=== PATIENT | male | born 1950 | race Caucasian/White ===

== ENCOUNTER 2017-01-14 07:48 | Outpatient (CLI) | payer MEDICARE ==
[~2017-01-14] VITALS: Ht 172.7 cm; Wt 62.7 kg
--- NOTE | ~2017-01-14 | PRO ---
PATIENT:KEON NAGEL MEDICAL RECORD: [id number] : 50 LOCATION:D.CAT ADMISSION DATE: 01/14/17 PROCEDURE PERFORMED BY: JEFFERSON FERREIRA MD PROCEDURE DATE: 01/14/17 PROCEDURES: 1. Percutaneous transluminal coronary angioplasty stent left circumflex. 2. Left heart catheterization. 3. Selective coronary angiography. 4. Left ventriculogram. INDICATION: 1. Angina. 2. Coronary artery disease. PROCEDURE IN DETAIL: After informed consent was obtained and after detailed explanation of risks, benefits, as well as alternative therapies, the patient elected to proceed with angiogram and angioplasty. The right femoral area was prepped and draped in a normal sterile fashion. The right femoral artery was cannulated via modified Seldinger technique with placement of 6-Yoruba sheath. All catheters exchanged through this sheath. FINDINGS: The left ventriculogram was performed in standard 30 degree VALENZUELA view, reveals good cardiac wall motion throughout all segments. Overall ejection fraction estimated at 60%. SELECTIVE CORONARY ANGIOGRAPHY: 1. Left main is with no significant angiographic disease. 2. Left anterior descending has previously placed stents. These are widely patent with no significant restenosis. 3. The left circumflex has previously placed stents. There is 90-95% in-stent restenosis in the mid vessel. 4. The right coronary artery has mild irregularities but no flow-limiting stenosis. PTCA STENT OF THE LEFT CIRCUMFLEX: The lesion was in a 2.25 vessel, 15 millimeters in length, 90% stenosed with CATRACHITA 3 flow before and after the intervention. It was addressed with a 2.25 X 18 millimeter BioFreedom stent taken to 17 atmospheres. The result was 0% residual stenosis. OVERALL IMPRESSION: Successful percutaneous transluminal coronary angioplasty stent of the left circumflex going from 90% initial stenosis to 0% residual stenosis. JEFFERSON FERREIRA MD CC: [id number] DICTATION DATE: 01/14/172156 BUSINESS MACHINES TEACHER: DEONDRE 01/14/172156 [facility] CLI 01/14/17 [place] [id number]
--- NOTE | ~2017-01-14 | HEMODYNAMI ---
PATIENT:KEON NAGEL MEDICAL RECORD: [id number] : 50 LOCATION:DVictorinoCAT ADMISSION DATE: 01/14/17 Generatedon:01/14/201712:27 Patient name: KEON NAGEL Patient #: [id number] SSN: : 1950 Date of study: 01/14/2017 Page: Of Hemodynamic Procedure Report Patient Data Patient Demographics Procedure consent was obtained First Name: KEON Gender: Male Last Name: SHONA : 1950 [facility] Initial: E Age: 66 year(s) Patient #: [id number] Race: Additional ID: [id number] Contact details Address: [address] [place] [address] State: [place] City: [facility] Zip code: [address] Past Medical History Allergies Allergen Reaction Date Comments Reported Iodine 12/12/2015 Iodine 01/14/2017 Admission Admission Data Admission Date: 01/14/2017 Admission Time: 7:48 Admit Source: Other Height (in.): 68 BSA: 1.75 (m2) Height (cm.): 172.72 BMI: 20.98 (kg/m2) Weight (lbs.): 138 Weight (kg.): 62.6 Lab Results Lab Result Date: 01/14/2017 Lab Result Time: 8:45 Biochemistry Name Units Result Min Max BUN mg/dl 15 --(--*-)-- 7 18 Creatinine mg/dl 1 --(--*-)-- 0.6 1.3 CBC Name Units Result Min Max Hematocrit % 41.3 -*(----)-- 42 54 Hemoglobin g/dl 14.6 --(-*--)-- 13.5 17.5 Procedure Procedure Types Cath Procedure Diagnostic Procedure [facility] w/Coronaries PCI Procedure Coronary Stent Initial Miscellaneous Procedures Moderate Sedation up to 30 minutes Procedure Description Procedure Date Procedure Date: 01/14/2017 Procedure Start Time: 12:05 Procedure End Time: 12:26 Procedure Staff Name Function Bernice Kapoor RT Scrub Farrukh Brewster RT Monitor Wale Hartley RN Custodial Manager Abhinav Escaalnte MD Performing Physician Tosha Villanueva RN Nurse Ronny Rehman RT Monitor Procedure Data Cath Procedure Fluoroscopy Diagnostic fluoroscopy Total fluoroscopy Time: 4.7 time: 4.7 min min Diagnostic fluoroscopy Total fluoroscopy dose: 351 dose: 351 mGy mGy Contrast Material Contrast Material Type Amount (ml) Isovue 300 74 Entry Location Entry Primary Successful Side Size Upsize Upsize Entry Closure Succes sful Closure Location (Fr) 1 (Fr) 2 (Fr) Remarks Device Remarks Femoral Right 5 Fr 6 Fr Exoseal artery Short Estimated blood loss: 10 ml Diagnostic catheters Device Type Used For End Catheter Placement Cordis 5Fr Pigtail Procedure Catheter (MP) Cordis 5Fr JL 4.0 Procedure Catheter (MP) Cordis 5Fr 3DRC Catheter Procedure (MP) Procedure Complications No complications Procedure Medications Medication Administration Route Dosage Oxygen NC 3 l/min Heparin Flush Bag added to field 2 bags (1000units/500ml NS) Lidocaine 2% added to field 20 0.9% NaCl I.V. 100 ml/hr Versed I.V. 1 mg Fentanyl I.V. 50 mcg Heparin Bolus I.V. 4000 units Integrilin (Bolus I.V. 5.6 ml 2mg/ml) Versed I.V. 1 mg Fentanyl I.V. 50 mcg Fentanyl I.V. 50 mcg Versed I.V. 1 mg Versed I.V. 1 mg Fentanyl I.V. 50 mcg Integrilin (Bolus 4.4 ml 2mg/ml) Hemodynamics Rest BSA: 1.75 (m2) HGB: 14.6 (g/dl) O2 Consumption: Estimated: 213.41 (ml/min) O2 Co nsumption indexed: Estimated:121.95 (ml/min/m) Heart Rate: 85 (bpm) Snapshots Pre Cath Intra NCS Post Cath Vital Signs Time Heart Resp SPO2 etCO2 RU5vdsl NIBP (mmHg) Rhythm Pain Sedation Rate (ipm) (%) (mmHg) (mmHg) Status Level (bpm) 11:47:24 84 15 100 0 0 140/96(121) NSR 0 (11) 10(A) , No pain 11:51:42 89 18 100 0 0 134/87(108) NSR 0 (11) 10(A) , No pain 11:55:56 90 17 100 0 0 135/88(109) NSR 0 (11) 10(A) , No pain 12:00:08 88 20 100 0 0 128/85(107) NSR 0 (11) 10(A) , No pain 12:04:22 85 19 99 0 0 117/79(96) NSR 0 (11) 10(A) , No pain 12:08:30 89 16 99 0 0 117/81(99) NSR 0 (11) 9(A) , No pain 12:12:38 95 16 98 0 0 118/78(97) NSR 0 (11) 9(A) , No pain 12:16:48 88 17 98 0 0 114/74(89) NSR 0 (11) 9(A) , No pain 12:20:54 93 16 98 0 0 114/87(97) NSR 0 (11) 10(A) , No pain 12:24:59 89 8 98 0 0 118/83(93) NSR 0 (11) 10(A) , No pain Medications Time Medication Route Dose Verified Delivered Reason Notes Ef fectiveness by by 11:47:24 Oxygen NC 3 Tosha Tosha used for l/min Kay Kay ornamental plasterer helper RN 11:47:33 Heparin Flush added 2 Tosha Tosha used for Bag to bags Kay Kay procedure (1000units/500ml field RN RN NS) 11:47:41 Lidocaine 2% added 20ml Tosha Tosha used for to vial Kay Kay procedure field RN RN 11:47:51 0.9% NaCl I.V. 100 Tosha Tosha used for ml/hr Kay Kay ornamental plasterer helper RN 12:04:08 Versed I.V. 1 mg Tosha Tosha for Kay Kay sedation RN RN 12:04:14 Fentanyl I.V. 50 Tosha Tosha for mcg Kay Kay sedation RN RN 12:07:16 Heparin Bolus I.V. 4000 Abhinav Tosha Per verified units Ava HOGAN Kay physician with dr. CHRISTIANO escalante 12:07:45 Integrilin I.V. 5.6 Abhinav Tosha Per verified (Bolus 2mg/ml) ml Ava HOGAN Kay physician with dr. CHRISTIANO escalante 12:08:17 Versed I.V. 1 mg Tosha Tosha for Kay Kay sedation RN RN 12:08:28 Fentanyl I.V. 50 Tosha Tosha for mcg Kay Kay sedation RN RN 12:12:20 Versed I.V. 1 mg Tosha Tosha for Kay Kay sedation RN RN 12:12:37 Fentanyl I.V. 50 Tosha Tosha for mcg Kay Kay sedation RN RN 12:16:30 Versed I.V. 1 mg Tosha Tosha for Kay Kay sedation RN RN 12:16:43 Fentanyl I.V. 50 Tosha Tosha for mcg Kay Kay sedation RN RN 12:21:25 Integrilin wasted 4.4 Tosha Tosha Per (Bolus 2mg/ml) ml Kay Kay physician RN generator repairer Log Time Note 11:35:31 Wale Hartley RN sent for patient. Start room use. 11:41:37 Time tracking: Regular hours 11:41:40 Plan of Care:Hemodynamics will remain stable., Cardiac rhythm will remain stable., Comfort level will be maintained., Respiratory function will remain adequate., Patient/ family verbilizes understanding of procedure., Procedure tolerated without complication., Recovers from procedure without complications.. 11:41:45 Patient received from Pre/Post Procedure Room to CCL 1 Alert and oriented. Tansferred to table in Supine position. 11:41:46 Correct patient and procedure confirmed by team. 11:41:46 Warm blankets applied, and ernesto hugger turned on for patient comfort. 11:41:47 Signed procedure consent form obtained from patient. 11:41:48 ECG and BP/O2 sat monitors applied to patient. 11:41:49 Full Disclosure recording started 11:46:14 Vital chart was started 11:47:24 Oxygen 3 l/min NC was administered by Tosha Villanueva RN; used for procedure; 11:47:33 Heparin Flush Bag (1000units/500ml NS) 2 bags added to field was administered by Tosha Villanueva RN; used for procedure; 11:47:41 Lidocaine 2% 20ml vial added to field was administered by Tosha Villanueva RN; used for procedure; 11:47:51 0.9% NaCl 100 ml/hr I.V. was administered by Tosha Villanueva RN; used for procedure; 11:48:44 Baseline sample Acquired. 11:48:50 Rhythm: sinus rhythm 11:49:16 H&P Date Dictated: 01/13/2017 Within 30 days and on chart., H&P Addendum completed by physician on day of procedure. (MUST COMPLETE FOR ALL OUTPATIENTS). 11:49:18 Pre-op teaching completed and patient verbalized understanding. 11:49:18 Pre-procedure instructions explained to patient. 11:49:20 Family in waiting room. 11:49:24 Patient NPO since Midnight. 11:49:36 Patient allergic to Iodine 11:49:40 Is the patient allergic to Iodine/contrast media? Yes. 11:49:42 Was the patient premedicated? Yes 11:49:47 Is patient on blood thinner?No 11:49:52 Patient diabetic? No. 11:49:59 ----Pre-sedation anethsthesia assessment.---- 11:50:02 Previous problem with sedation/anesthesia? No ? 11:50:04 Snore? Yes 11:50:07 Sleep apnea? No 11:50:08 Deviated septum? No 11:50:10 Opens mouth fully? Yes 11:50:12 Sticks out tongue? Yes 11:50:19 Airway obstruction? Yes COPD 11:50:25 Dentures? Yes OUT 11:50:30 Pre procedure: right dorsailis pedis pulse 1+ Palpable, but thready & weak; easily obliterated 11:50:35 Patient pain scale 0/10 ?. 11:50:49 IV patent on arrival in left antecubital with 0.9% NaCl at [facility]. 11:55:15 Lab Result : Hemoglobin 14.6 g/dl 11:55:15 Lab Result : Hematocrit 41.3 % 11:55:15 Lab Result : BUN 15 mg/dl 11:55:15 Lab Result : Creatinine 1 mg/dl 11:55:17 Zero performed for pressure channel P1 11:57:35 Zero performed for pressure channel P1 11:58:08 Lab results completed and on chart. 11:58:11 Right groin area was prepped with chlora-prep and draped in sterile fashion 11:58:12 Sharps counted by scrub and verified by R.N. 11:58:12 Alarms reviewed by R. N. 11:58:15 Use device set Femoral Dx 11:58:16 Tegaderm 4 x 4 opened to sterile field. 11:58:17 Acist Manifold opened to sterile field. 11:58:18 Acist Hand Control opened to sterile field. 11:58:19 Bag Decanter opened to sterile field. 11:58:19 Acist Syringe opened to sterile field. 11:58:20 Terumo 5Fr [place] Sheath opened to sterile field. 11:58:20 Medline Cath Pack opened to sterile field. 11:58:21 St Stephan 260cm J .035 wire opened to sterile field. 11:58:22 Diagnostic Infinity 5Fr Multipack catheter opened to sterile field. 12:03:44 Physician arrived 12:03:45 Final Timeout: patient, procedure, and site verified with staff and physician. All members of the team are in agreement. 12:03:45 --------ALL STOP TIME OUT------ 12:03:46 Right groin site verified by team. 12:03:49 Physical assessment completed. ASA score P 2 - A patient with mild systemic disease as per Abhinav Escalante MD. 12:03:52 Sedation plan: IV Moderate Sedation Versed, Fentanyl 12:04:08 Versed 1 mg I.V. was administered by Tosha Villanueva RN; for sedation; 12:04:14 Fentanyl 50 mcg I.V. was administered by Tosha Villanueva RN; for sedation; 12:05:44 Procedure started. 12:05:51 Local anesthetic to right femoral artery with Lidocaine 2% by Abhinav Escalante MD.INITIAL ACCESS ONLY 12:06:08 A 5 Fr sheath was inserted into the Right Femoral artery 12:06:28 A Cordis 5Fr Pigtail Catheter (MP) was advanced over the wire and used for Procedure. 12:06:35 LV gram done using VALENZUELA 12:06:38 Injector settings: Ml/sec: 10, Volume: 20, 12:06:44 EF : 60 % 12:07:01 A Cordis 5Fr JL 4.0 Catheter (MP) was advanced over the wire and used for Procedure. 12:07:16 Heparin Bolus 4000 units I.V. was administered by Tosha Villanueva RN; Per physician; verified with dr. escalante 12:07:29 LCA angiography performed. 12:07:45 Integrilin (Bolus 2mg/ml) 5.6 ml I.V. was administered by Tosha Villanueva RN; Per physician; verified with dr. escalante 12:07:51 Gill Whisper J 300cm 0.014 guide wire opened to sterile field. 12:07:51 Terumo 6Fr [place] Sheath opened to sterile field. 12:07:52 Merit BasixCompak Inflation Kit opened to sterile field. 12:08:08 Catheter removed. 12:08:17 Versed 1 mg I.V. was administered by Tosha Villanueva RN; for sedation; 12:08:28 Fentanyl 50 mcg I.V. was administered by Tosha Villanueva RN; for sedation; 12:09:03 Sheath upsized to a 6 Fr Short. 12:09:11 A Cordis 5Fr 3DRC Catheter () was advanced over the wire and used for Procedure. 12:09:22 RCA angiography performed. 12:10:06 Catheter removed. 12:11:07 Cordis 6FR XBLAD 3.5 guide catheter opened to sterile field. 12:11:21 6 Fr XBLAD 3.5 guide catheter was inserted over the wire 12:12:20 Versed 1 mg I.V. was administered by Tosha Villanueva RN; for sedation; 12:12:37 Fentanyl 50 mcg I.V. was administered by Tosha Villanueva RN; for sedation; 12:12:56 Guide Catheter removed. unable to cannulate vessel. 12:13:05 Medtronic Launcher 6Fr EBU 3.0 guide catheter opened to sterile field. 12:13:12 6 Fr EBU 3 guide catheter was inserted over the wire 12:13:45 WHISPER wire advanced. 12:13:50 Wire advanced across lesion. 12:15:23 Inflation number: 1 A [place] Moven Hardin 2.0 X 20 balloon was prepped and advanced across the Mid CX, then inflated to 17 TAHMINA for 0:10 (min:sec). 12:15:30 Balloon removed over the wire. 12:16:30 Versed 1 mg I.V. was administered by Tosha Villanueva RN; for sedation; 12:16:43 Fentanyl 50 mcg I.V. was administered by Tosha Villanueva RN; for sedation; 12:17:21 Inflation Number: 2 A Biofreedom 2.25 x 18 Stent (No Cost Implant) was prepped and advanced across the Mid CX. The stent was deployed at 17 TAHMINA for 0:10 (min:sec). 12:18:02 Stent catheter was removed intact over wire. 12:18:50 Guide catheter removed. 12:18:50 Wire removed. 12:18:56 Cordis 6Fr Exoseal opened to sterile field. 12:19:05 Sheath removed intact; hemostasis achieved with Exoseal to the Right Femoral artery. 12:19:07 Procedure ended.(Physican Out) 12:19:46 Patient Height : 68 cm 12:19:51 Patient Weight : 138 kg 12:19:51 Admit Source: Other 12:21: Fluoroscopy time 04.70 minutes. 12:21:04 Fluoroscopy dose: 351 mGy 12:21:04 Flurop Dose total: 351 12:21:09 Contrast amount:Isovue 300 74ml. 12:21:10 Sharps counted by scrub and verified by R.N. 12:21:25 Integrilin (Bolus 2mg/ml) 4.4 ml wasted was administered by Tosha Villanueva RN; Per physician; 12:22:31 Insertion/operative site no bleeding no hematoma. 12:22:34 Post-op/insertion site Right Femoral artery dressed using a 4 x 4 and Tegaderm. 12:22:38 Post right femoral artery:stable, soft, clean and dry 12:22:39 Post Procedure Pulses reassessed and unchanged 12:22:42 Post-procedure physical assessment completed. ASA score P 2 - A patient with mild systemic disease as per Abhinav Escalante MD. 12:22:44 Post procedure rhythm: unchanged. 12::46 Estimated blood loss: 10 ml 12:22:51 Patient needs reinforcement of post procedure teaching. 12:22:51 Post procedure instruction explained to patient.Patient verbalizes understanding. 12:23:06 Procedure type changed to Cath procedure, Diagnostic procedure, LHC, LHC w/Coronaries, PCI procedure, Coronary Stent Initial, Miscellaneous Procedures, Moderate Sedation up to 30 minutes 12:25:55 Procedure and supply charges have been captured, reviewed, submitted and are correct. 12:25:55 Procedure and supply charges have been captured, reviewed, submitted and are correct. 12:26:00 Procedure Complication : No complications 12:26:02 Vital chart was stopped 12:26:05 Report given to Pre/Post Procedure Room. 12:26:07 Patient transfered to Pre/Post Procedure Room with Stretcher. 12:26:14 Full Disclosure recording stopped 12:26:14 Procedure ended. 12:26:18 End room use (Document Last) Intervention Summary Intervention Notes Time ActionType Lesion and Equipment Action# Pressure Duration Attributes Used 12:15:23 Inflate Mid CX [place] Sci 1 17 00:10 balloon Hardin 2.0 X 20 balloon 12:17:21 Place stent Mid CX Biofreedom 2 17 00:10 2.25 x 18 Stent (No Cost Implant) Device Usage Item Name Manufacture Quantity Catalog Number Hospital Part Current Mini mal Lot# / Charge Number Stock Stock Serial# Code Tegaderm 4 3M 1 [id number] 186153 602263 5 x 4 Acist Acist 1 31192 374627 465725 208265 5 Manifold Medical Systems [employer] Acist Hand Acist 1 43331 974275 931533 272558 5 Control Medical Systems [employer] Acist Acist 1 79595 290064 230295 444094 20 Syringe Medical Systems [employer] Bag Microtek 1 2002S 673097 02557 861360 5 Aspyra [employer] Inc[employer] Medline Cardinal 1 [id number] 626303 17933 211493 5 Cath Pack Health Terumo 5Fr Terumo 1 [id number] 772744 582631 825296 [address] Stephan 1 849787 347371 957222 664188 30 260cm J .035 wire Diagnostic Cardinal 1 [id number] 755373 88378 746545 30 Infinity Health 5Fr Multipack catheter Cordis 5Fr Cardinal 1 094038 5 Pigtail Health Catheter (MP) Cordis 5Fr Cardinal 1 136149 5 JL 4.0 Health Catheter (MP) Terumo 6Fr Terumo 1 [id number] 009594 036093 066136 40 [place] Sheath Gill Gill 1 [id number] 898935 217779 925790 5 Whisper J Vascular 300cm 0.014 guide wire Merit Merit 1 [id number] 307829 807605 458842 15 enVerid Medical Inflation Kit Cordis 5Fr Cardinal 1 042360 5 [facility] Health Catheter (MP) Cordis 6FR Cardinal 1 [id number] 426937 906475 158907 10 XBLAD 3.5 Health guide catheter Medtronic Medtronic 1 [id number] 638054 07870 807871 0 Launcher 6Fr EBU 3.0 guide catheter Kingsland Sci Kingsland 1 [id number] 447120 262206 079354 1 [id number] Knock Knock 2.0 X 20 balloon Biofreedom Biosensors 1 [id number] 421534 006559 5 [id number] 2.25 x 18 Europe SA Stent (No Cost Implant) Cordis 6Fr Cardinal 1 EX600 944809 590584 212941 10 [facility] [employer] Now Signature Audit [place] Stage Time Signature Unsigned Intra-Procedure 01/14/2017 Ronny Rehman 12:27:51 PM RT(R) Signatures Monitor : Farrukh Brewster RT Signature : Date : Time : Monitor : Ronny Rehman RT Signature : Date : Time : [place] [address] [place] [address]
[~2017-01-14 07:48] MED LIST: BAYER CHEWABLE81 MG PO; BUTALB-APAP-CA1 EACH; BUTALB-APAP-CA1 EACH PO; CELEXA20 MG PO; CHANTIX 1 MG TAB1 MG PO; COMBIVENT RESPIM4 GM INH; EPIPEN0.3 MG/0.3 IM; LIPITOR80 MG PO; PERCOCET 10/3251 TA1 PO; PLAVIX75 MG PO; PREDNISONE20 MG PO; PROAIR HFA8.5 GM INH; PROZAC20 MG PO; ROBAXIN500 MG PO; XANAX1 MG PO
[2017-01-14 08:53] VITALS: BP 108/73; Ht 172.7 cm; Wt 62.7 kg
[2017-01-14 08:55] LABS: BASOPHILS 0 % (0-2); EOSINOPHILS 0 % (0-7); HEMATOCRIT 41.3 % (42.0-54.0); HEMOGLOBIN 14.6 g/dL (13.5-17.5); IMMATURE GRANULOCYTES 0.2 % (0-5); LYMPHOCYTES 7.2 % (15-50); MCHC 35.4 g/dL (31.0-37.0); MCV 87.7 fL (80.0-100.0); NEUTROPHILS 91.6 % (40-80); PLATELET COUNT 158 10x3/uL (130-400); RBC 4.71 10x6/uL (4.20-6.10); RDW 13.6 % (11.5-14.5); WBC 6.1 10x3/uL (4.8-10.8)
[2017-01-14 09:08] LABS: CALC OSMOLALITY 283 mosm/kg (275-300); CALCIUM 9.1 mg/dL (8.5-10.1); CARBON DIOXIDE 25.2 mmol/L (21.0-32.0); CHLORIDE - SERUM 107 mmol/L (98-107); GLUCOSE 131 mg/dL (74-106); POTASSIUM - SERUM 5.3 mmol/L (3.5-5.1); SODIUM 141 mmol/L (136-145); UREA NITROGEN 15 mg/dL (7-18); eGFR NON AFRICAN AMERICAN 79 mL/min (90-120)
[2017-01-14 09:21] LABS: CKMB 2.3 U/L (0.0-3.6); CREATINE KINASE 97 UL (21-232)
[2017-01-14 09:22] LABS: TROPONIN-I < 0.017 ng/mL (0.000-0.060)
[2017-01-14] MEDS ORDERED: PLAVIX75 MG PO (12:51)
--- NOTE | 2017-01-14 13:00 | NUR ---
RIGHT GROIN CDI, NO HEMATOMA OR BLEEDING NOTED, DAUGHTER AT SIDE. DENIES CHEST PAIN OR NEEDS
--- NOTE | 2017-01-14 13:30 | NUR ---
NO CHANGE IN RIGHT GROIN, DAUGHTER AT SIDE.
--- NOTE | 2017-01-14 16:10 | NUR ---
IV D'C WITH CATH TIP INTACT, WRITTEN AND VERBAL D'C INSTRUCTIONS GIVEN TO PT AND DAUGHTER. DENIES CHEST PAIN. LAB AND EKG DONE.
== END 2017-01-14 16:30 | disposition home or self-care (01) ==
LOC: D.CATH 07:48
PROVIDERS: Internal Medicine Interventional Cardiology
DX: I25.119 Atherosclerotic heart disease of native coronary artery with unspecified angina pectoris (principal); E78.5 Hyperlipidemia, unspecified; Z01.810 Encounter for preprocedural cardiovascular examination; Z01.812 Encounter for preprocedural laboratory examination; Z00.6 Encounter for examination for normal comparison and control in clinical research program; F17.200 Nicotine dependence, unspecified, uncomplicated
CPT/HCPCS: 93458; C9600

== ENCOUNTER → 2017-02-23 08:51 | Outpatient (CLI) | payer MEDICARE ==
[2017-01-14 08:53] VITALS: BMI 21.0
== END | disposition home or self-care (01) ==
LOC: D.CT 08:51
DX: I73.9 Peripheral vascular disease, unspecified (principal)

== ENCOUNTER 2017-03-03 15:25 | Emergency (ER) | payer MEDICARE ==
[2017-01-14 08:53] VITALS: BMI 21.0
[2017-03-03 15:55] LABS: BASOPHILS 0.2 % (0-2); EOSINOPHILS 3.3 % (0-7); HEMATOCRIT 41.6 % (42.0-54.0); HEMOGLOBIN 14.8 g/dL (13.5-17.5); IMMATURE GRANULOCYTES 0.3 % (0-5); LYMPHOCYTES 15.4 % (15-50); MCH 30.5 pg (26.0-34.0); MCHC 35.6 g/dL (31.0-37.0); MCV 85.8 fL (80.0-100.0); MEAN PLATELET VOLUME 8.9 fL (7.4-10.4); NEUTROPHILS 70.8 % (40-80); RBC 4.85 10x6/uL (4.20-6.10); RDW 13.4 % (11.5-14.5); WBC 6.3 10x3/uL (4.8-10.8)
[2017-03-03 15:58] LABS: PLATELET COUNT 115 10x3/uL (130-400)
[2017-03-03 16:10] LABS: ALBUMIN 3.7 g/dL (3.4-5.0); ALKALINE PHOSPHATASE 89 U/L (46-116); ALT (SGPT) 37 U/L (10-68); BILIRUBIN - TOTAL 0.86 mg/dL (0.2-1.3); CALC OSMOLALITY 272 mosm/kg (275-300); CALCIUM 8.6 mg/dL (8.5-10.1); CARBON DIOXIDE 28.1 mmol/L (21.0-32.0); CHLORIDE - SERUM 102 mmol/L (98-107); GLUCOSE 106 mg/dL (74-106); POTASSIUM - SERUM 3.7 mmol/L (3.5-5.1); PROTEIN - SERUM 6.2 g/dL (6.4-8.2); SODIUM 137 mmol/L (136-145); UREA NITROGEN 10 mg/dL (7-18); eGFR NON AFRICAN AMERICAN 79 mL/min (90-120)
[2017-03-03 16:20] LABS: CKMB 1.8 U/L (0.0-3.6); CREATINE KINASE 64 UL (21-232); TROPONIN-I < 0.017 ng/mL (0.000-0.060)
== END 2017-03-03 17:40 | disposition home or self-care (01) ==
LOC: D.ER 15:25
PROVIDERS: Emergency Medicine
DX: R07.89 Other chest pain (principal)

== ENCOUNTER 2017-04-04 09:02 | Emergency (ER) | payer MEDICARE ==
[2017-01-14 08:53] VITALS: BMI 21.0
== END 2017-04-04 13:27 | disposition home or self-care (01) ==
LOC: D.ER 09:02
DX: S49.91XA Unspecified injury of right shoulder and upper arm, initial encounter (principal); W10.9XXA Fall (on) (from) unspecified stairs and steps, initial encounter; Y93.K1 Activity, walking an animal; Y92.89 Other specified places as the place of occurrence of the external cause

== ENCOUNTER 2017-07-06 06:28 | Day surgery (SDC) | payer MEDICARE ==
[~2017-07-06] VITALS: Ht 170.2 cm; Wt 63.6 kg
--- NOTE | ~2017-07-06 | OP ---
PATIENT NAME: KEON NAGEL MEDICAL RECORD: [id number] :50 LOCATION:ANGELI ADMISSION DATE: SURGEON: KAYLEY SMITH MD DATE OF OPERATION: 07/06/2017 PROCEDURE: Colonoscopy with hot biopsy polypectomy, colonoscopy with snare biopsy polypectomy, colonoscopy with placement of a Hemoclip clip to control bleeding. INDICATION FOR THE PROCEDURE: History of polyps. MEDICATIONS: TIVA, the patient received propofol 800 mg IV push, labetalol 5 mg IV push, O2 4 liters. FINDINGS: Informed consent was given. The patient was made comfortable with the above medications. After reaching an adequate level of sedation by slow IV push, the patient was placed on his left side. The rectal exam revealed good sphincter tone, no fissures or fistulas were appreciated. No external skin tags were seen. The colonoscope was advanced to the cecum where the ileocecal valve and appendiceal orifice were identified. The scope was slowly withdrawn. Polyps were removed as follows: A 1 cm descending colon polyp was removed with hot biopsy forcep technique, 1 cm proximal ascending colon polyp was removed with hot biopsy forceps technique, a 0.5 cm polyp was removed at 55 cm again with hot biopsy forcep technique. At 50 cm, a 1 cm polyp was seen and removed with hot biopsy forceps technique. Two 1 cm polyps were noted at 35 cm and removed with hot biopsy forceps technique. In the distal sigmoid area, at 15 cm, a 0.5 cm polyp was seen and removed with hot biopsy forceps technique. Within the rectal pouch a 1.5 cm was removed with a snare. The patient had very mild left-sided diverticulosis without diverticulitis and on retroflexion and final withdrawal of the scope, hemorrhoids were seen. PLAN: 1. No anti-inflammatory drugs for 14 days. 2. The patient should resume his aspirin 81 mg tomorrow. 3. Probiotics. 4. The patient had two 500 mg amoxicillin tablets prior to the procedure and will take 2 additional amoxicillin tablets 4 hours after the procedure. TRANSINT:[id number] Voice Confirmation ID: [id number] DOCUMENT ID: [id number] KAYLEY SMITH MD at 1532 CC: RAMOS MCKEON DO [id number] DICTATION DATE: 07/06/17 0941 OTOLARYNGOLOGY PHYSICIAN: 07/06/17 1134 [facility] 07/06/17 [facility] [address] [place] [address]
[2017-07-06 07:14] LABS: BASOPHILS 0.2 % (0-2); EOSINOPHILS 5.8 % (0-7); HEMATOCRIT 41.3 % (42.0-54.0); HEMOGLOBIN 14.7 g/dL (13.5-17.5); LYMPHOCYTES 15.5 % (15-50); MCH 31.3 pg (26.0-34.0); MCHC 35.6 g/dL (31.0-37.0); MCV 88.1 fL (80.0-100.0); MEAN PLATELET VOLUME 8.5 fL (7.4-10.4); MONOCYTES 7.8 % (2-11); NEUTROPHILS 70.7 % (40-80); PLATELET COUNT 125 10x3/uL (130-400); RBC 4.69 10x6/uL (4.20-6.10); RDW 14.2 % (11.5-14.5)
[2017-07-06 07:30] LABS: CALC OSMOLALITY 286 mosm/kg (275-300); CALCIUM 9.3 mg/dL (8.5-10.1); CARBON DIOXIDE 26.6 mmol/L (21.0-32.0); CHLORIDE - SERUM 107 mmol/L (98-107); GLUCOSE 96 mg/dL (74-106); POTASSIUM - SERUM 3.9 mmol/L (3.5-5.1); SODIUM 144 mmol/L (136-145); UREA NITROGEN 13 mg/dL (7-18); eGFR NON AFRICAN AMERICAN 79 mL/min (90-120)
[2017-07-06 08:08] VITALS: Ht 170.2 cm; Wt 63.6 kg
== END 2017-07-06 10:30 | disposition home or self-care (01) ==
LOC: D.OPS 06:28
PROVIDERS: Anesthesiology
DX: D12.4 Benign neoplasm of descending colon (principal); D12.5 Benign neoplasm of sigmoid colon; D12.8 Benign neoplasm of rectum; K63.5 Polyp of colon; K57.30 Diverticulosis of large intestine without perforation or abscess without bleeding; K64.9 Unspecified hemorrhoids; Z01.812 Encounter for preprocedural laboratory examination

== ENCOUNTER 2017-08-10 06:03 | Day surgery (SDC) | payer MEDICARE ==
[~2017-08-10] VITALS: Ht 170.2 cm; Wt 58.6 kg
--- NOTE | ~2017-08-10 | OP ---
PATIENT NAME: KEON NAGEL MEDICAL RECORD: [id number] :50 LOCATION:ANGELI ADMISSION DATE: SURGEON: KAYLEY SMITH MD DATE OF OPERATION: 08/10/2017 PROCEDURE: Colonoscopy with polyp ablation, colonoscopy with hot biopsy polypectomy. SCOPE: Olympus video colonoscope. MEDICATIONS: Per TIVA anesthesia. The indication for TIVA is coronary artery disease. The patient has had a myocardial infarction with 15 stents. He has also had a cerebrovascular accident. Medications were Propofol given throughout the procedure with a total of 225 mg O2 4 liters. INDICATION FOR THE PROCEDURE: The patient had a previous polyp removed, which was found to be a tubulovillous polyp in the rectum with low-grade atypia, 07/06/2017 removed with a snare. He is having repeat colonoscopy today looking for any recurrent growth. FINDINGS: Informed consent was given. The patient was made comfortable with the above medications. After reaching an adequate level of sedation by slow IV push, the patient was placed on his left side. The rectal exam revealed good sphincter tone, no fissures or fistulas were appreciated. No external skin tags were seen. The colonoscope was advanced to the cecum where the ileocecal valve and appendiceal orifice were identified. The prep was fair. On withdrawal of the scope, mucosa was carefully inspected. The patient had very mild left-sided diverticulosis without diverticulitis. In the sigmoid area, 0.5 cm polyp was seen and removed with hot biopsy forceps technique. In the rectal vault, a very pronounced scar was seen from removal of the earlier polyp with a snare. No regrowth was identified. The patient had some very small benign appearing sessile polyps at 0.5 cm located in the rectal pouch and distal rectal area and these were simply ablated. On retroflexion and final withdrawal of the scope, internal hemorrhoids were noted. IMPRESSION: 1. No regrowth of the large tubulovillous polyp with atypia, which was removed with a snare in the rectal pouch 07/06/2017. 2. Fair prep. For this reason, some polyps could have been missed during our inspection. 3. Sigmoid polyp, 0.5 cm in size, removed with hot biopsy forcep technique. 4. Mild left-sided diverticulosis without diverticulitis. 5. Five polyps in the distal rectal area 0.5 cm in size, ablated. 6. Internal hemorrhoids. PLAN: 1. No aspirin for 14 days. 2. High fiber diet. 3. Take probiotics. Return to clinic on a p.r.n. basis. TRANSINT:[id number] Voice Confirmation ID: [id number] DOCUMENT ID: [id number] OPERATIVE REPORT [id number] KEON NAGEL BRENDA MD CC: RAMOS MCKEON DO and JEFFERSON FERREIRA [id number] DICTATION DATE: 08/10/1724 DIRECTOR OF STUDENT AFFAIRS: 08/10/17 [address] [place] [id number] [place] [id number]
[2017-08-10 06:56] LABS: BASOPHILS 0.2 % (0-2); EOSINOPHILS 6.5 % (0-7); HEMATOCRIT 39.6 % (42.0-54.0); HEMOGLOBIN 14.1 g/dL (13.5-17.5); IMMATURE GRANULOCYTES 0.2 % (0-5); LYMPHOCYTES 14.9 % (15-50); MCH 31.2 pg (26.0-34.0); MCHC 35.6 g/dL (31.0-37.0); MCV 87.6 fL (80.0-100.0); MEAN PLATELET VOLUME 8.7 fL (7.4-10.4); MONOCYTES 6.7 % (2-11); NEUTROPHILS 71.5 % (40-80); PLATELET COUNT 119 10x3/uL (130-400); RBC 4.52 10x6/uL (4.20-6.10); RDW 13.9 % (11.5-14.5); WBC 5.7 10x3/uL (4.8-10.8)
[2017-08-10 07:17] LABS: ANION GAP 11.2 mmol/L (8-16); CALCIUM 8.8 mg/dL (8.5-10.1); CARBON DIOXIDE 28.2 mmol/L (21.0-32.0); CREATININE - SERUM 1.1 mg/dL (0.6-1.3); POTASSIUM - SERUM 4.4 mmol/L (3.5-5.1)
[2017-08-10 07:27] VITALS: BP 107/77; Ht 170.2 cm; Wt 58.6 kg
== END 2017-08-10 10:40 | disposition home or self-care (01) ==
LOC: D.OPS 06:03
PROVIDERS: Anesthesiology
DX: K63.5 Polyp of colon (principal); K57.30 Diverticulosis of large intestine without perforation or abscess without bleeding; K62.1 Rectal polyp; K64.8 Other hemorrhoids; I25.10 Atherosclerotic heart disease of native coronary artery without angina pectoris; Z95.5 Presence of coronary angioplasty implant and graft; I25.2 Old myocardial infarction; Z86.73 Personal history of transient ischemic attack (TIA), and cerebral infarction without residual deficits; Z01.812 Encounter for preprocedural laboratory examination

== ENCOUNTER → 2017-10-31 09:09 | Outpatient (CLI) | payer MEDICARE ==
[2017-08-10 07:27] VITALS: BMI 20.2
== END | disposition home or self-care (01) ==
LOC: D.CT 09:00
DX: R05 Cough (principal)

== ENCOUNTER 2018-01-19 06:57 | Inpatient (IN) | payer MEDICARE ==
[~2018-01-19] VITALS: Ht 170.2 cm; Wt 77.3 kg
--- NOTE | ~2018-01-19 | HEMODYNAMI ---
PATIENT:KEON NAGEL MEDICAL RECORD: [id number] : 50 LOCATION:DPIOTR ADMISSION DATE: 01/19/18 Generatedon:01/19/201812:25 Patient name: KEON NAGEL Patient #: [id number] SSN: : 1950 Date of study: 01/19/2018 Page: Of Hemodynamic Procedure Report Patient Data Patient Demographics Procedure consent was obtained First Name: KEON Gender: Male Last Name: SHONA : 1950 [facility] Initial: E Age: 67 year(s) Patient #: [id number] Race: Additional ID: [id number] Contact details Address: [address] [place] [address] State: [place] City: [facility] Zip code: [address] Past Medical History Allergies Allergen Reaction Date Comments Reported Iodine 12/12/2015 Iodine 01/14/2017 Admission Admission Data Admission Date: 01/19/2018 Admission Time: 6:57 Arrival Date: 01/19/2018 Arrival Time: 6:57 Admit Source: Other Insurance Payor: Medicare Procedure Procedure Types Cath Procedure Diagnostic Procedure LHC LH w/Coronaries Sedation Charges Moderate Sedation up to 15 minutes Procedure Description Procedure Date Procedure Date: 01/19/2018 Procedure Start Time: 12:06 Procedure End Time: 12:22 Procedure Staff Name Function Landon Barroso MD Performing Physician Laura Valle RT Monitor Kaylyn Boudreaux RT Scrub Cathleen Brooks RN Nurse Procedure Data Cath Procedure Fluoroscopy Diagnostic fluoroscopy Total fluoroscopy Time: 2.2 time: 2.2 min min Diagnostic fluoroscopy Total fluoroscopy dose: 340 dose: 340 mGy mGy Contrast Material Contrast Material Type Amount (ml) Isovue 300 40 Entry Location Entry Primary Successful Side Size Upsize Upsize Entry Closure [place] ccessful Closure Location (Fr) 1 (Fr) 2 (Fr) Remarks Device Remarks Radial Right 6 Fr Mechanical artery Short Compression Estimated blood loss: 5 ml Diagnostic catheters Device Type Used For End Catheter Placement DIAGNOSTIC Amagon 110cm 5 Multi-vessel Fr catheter ([id number]) Angiography Procedure Complications No complications Procedure Medications Medication Administration Route Dosage Oxygen NC 2 l/min Lidocaine 2% added to field 20 Heparin Flush Bag added to field 2 bags (1000units/500ml NS) 0.9% NaCl I.V. 100 ml/hr Radial Cocktail I.A. 1 syringe (Verapomil 2mg/Nitro 400mcg/Heparin 1500units) Versed I.V. 2 mg Fentanyl I.V. 50 mcg Versed I.V. 1 mg Fentanyl I.V. 50 mcg Hemodynamics Rest Heart Rate: 82 (bpm) Pressure Samples Time Site Value (mmHg) Purpose Heart Use Rate(bpm) 12:09 LV 91/-5,-2 EDP 114 Gradients Valve Time Site Site Mean SEP/DFP Peak To Heart Use 1 2 (mmHg) (sec/min) Peak Rate (mmHg) (bpm) Aortic 12:10 LV AO 112 Snapshots Pre Cath Intra NCS Post Cath Vital Signs Time Heart Resp SPO2 etCO2 NIBP (mmHg) Rhythm Pain Sedation Rate (ipm) (%) (mmHg) Status Level (bpm) 11:49:22 87 15 100 29.1 142/79(97) NSR 0 (11) 10(A) , No pain 11:53:12 87 16 100 19.4 125/78(101) NSR 0 (11) 10(A) , No pain 11:56:59 84 15 100 25.3 119/74(92) NSR 0 (11) 10(A) , No pain 12:01:07 83 13 100 23.8 121/76(95) NSR 0 (11) 10(A) , No pain 12:04:54 83 12 100 24.6 115/72(92) NSR 0 (11) 10(A) , No pain 12:09:53 82 15 100 15.6 93/59(0) NSR 0 (11) 10(A) , No pain 12:12:52 91 15 99 22.3 92/60(0) NSR 0 (11) 10(A) , No pain Medications Time Medication Route Dose Verified Delivered Reason Notes Effectiveness by by 11:45:59 Oxygen NC 2 l/min Landon Buffie used for Dharmesh Brooks battery assembler dry cell 11:46:06 Lidocaine 2% added 20ml Landon Landon for local to vial Dharmesh Barroso MD anesthetic field 11:46:14 Heparin Flush added 2 bags Landon Landon used for Bag to Dharmesh Barroso MD procedure (1000units/500ml field NS) 11:46:22 0.9% NaCl I.V. 100 Landon Buffie Per ml/hr Dharmesh Brooks RN physician 12:03:46 Versed I.V. 2 mg Landon Buffie for sedation Dharmesh Brooks RN, MD 12:03:52 Fentanyl I.V. 50 mcg Landon Buffie for sedation Dharmesh Brooks RN, MD 12:06:35 Versed I.V. 1 mg Lnadon Buffie for sedation Dharmesh Brooks RN, MD 12:06:38 Fentanyl I.V. 50 mcg Landon Buffie for sedation Dharmesh Brooks RN, MD 12:08:00 Radial Cocktail I.A. 1 Landon Landon for (Verapomil syringe Dharmesh Barroso MD vasodilation 2mg/Nitro MD 400mcg/Heparin 1500units) Procedure Log Time Note 11:25:53 Informed consent obtained and on chart 11:25:57 Diagnostic Cath Status : Elective 11:26:18 Upon transporting pt to metallurgy laboratory technician from er pt had episode of difficulty speaking which immediately resolved. pt reported the medication given caused him to react that way. pt without any deficts. equal bilat hand morale officer and strength and no facial assymetry noted. speech immediately back to normal. pupils armen 11:26:20 Cathleen Brooks RN sent for patient. Start room use. 11:26:20 Time tracking: Regular hours (M-F 7:00 - 5:00) 11:26:25 Plan of Care:Hemodynamics will remain stable., Cardiac rhythm will remain stable., Comfort level will be maintained., Respiratory function will remain adequate., Patient/ family verbilizes understanding of procedure., Procedure tolerated without complication., Recovers from procedure without complications.. 11:28:42 Admit Source: Other 11:28:44 Arrival Date: 01/19/2018 6:57:00 AM 11:28:49 Insurance Payor : Medicare 11:33:19 Patient received from ED to CCL 2 Alert and oriented. Tansferred to table in Supine position. 11:33:20 Warm blankets applied, and ernesto hugger turned on for patient comfort. 11:33:21 Correct patient and procedure confirmed by team. 11:33:27 ECG and BP/O2 sat monitors applied to patient. 11:45:59 Oxygen 2 l/min NC was administered by Cathleen Brooks RN; used for procedure; 11:46:06 Lidocaine 2% 20ml vial added to field was administered by Landon Barroso MD; for local anesthetic; 11:46:14 Heparin Flush Bag (1000units/500ml NS) 2 bags added to field was administered by Landon Barroso MD; used for procedure; 11:46:22 0.9% NaCl 100 ml/hr I.V. was administered by Cathleen Brooks RN; Per physician; 11:48:07 Vital chart was started 11:50:43 Baseline sample Acquired. 11:50:47 Rhythm: sinus rhythm 11:50:49 Full Disclosure recording started 11:50:52 H&P Date Dictated: 01/19/2018 Within 30 days and on chart., H&P Addendum completed by physician on day of procedure. (MUST COMPLETE FOR ALL OUTPATIENTS). 11:50:54 Pre-procedure instructions explained to patient. 11:50:54 Pre-op teaching completed and patient verbalized understanding. 11:50:55 Family in waiting room. 11:50:57 Patient NPO since Midnight. 11:51:00 Is the patient allergic to Iodine/contrast media? No. 11:51:01 Was the patient premedicated? No 11:51:05 Is patient on blood thinner?Yes 11:51:08 ACC The patient was administered the following blood thiners within the last 24 hours: ACCPlavix 11:51:11 Patient diabetic? No. 11:51:14 Previous problem with sedation/anesthesia? No ? 11:51:16 Snore? Yes 11:51:19 Sleep apnea? No 11:51:21 Deviated septum? No 11:51:21 Opens mouth fully? Yes 11:51:22 Sticks out tongue? Yes 11:51:27 Airway obstruction? Yes copd 11:51:31 Dentures? Yes in tight 11:51:39 Pre procedure: right dorsailis pedis pulse 1+ Palpable, but thready & weak; easily obliterated 11:51:41 Pre procedure: left dorsailis pedis pulse 1+ Palpable, but thready & weak; easily obliterated 11:51:42 Patient pain scale 0/10 ?. 11:51:48 IV patent on arrival in left antecubital with 0.9% NaCl at O. 11:51:50 Lab results completed and on chart. 11:51:56 Right Radial & Right Groin area was prepped with chlora-prep and draped in sterile fashion 11:51:57 Alarms reviewed by R. N. 11:51:57 Sharps counted by scrub and verified by R.N. 11:54:59 Zero performed for pressure channel P1 12:03:05 Physician arrived 12:03:05 --------ALL STOP TIME OUT------ 12:03:06 Final Timeout: patient, procedure, and site verified with staff and physician. All members of the team are in agreement. 12:03:08 Right Radial & Right Groin site verified by team. 12:03:11 Physical assessment completed. ASA score P 2 - A patient with mild systemic disease as per Landon Barroso MD. 12:03:14 Sedation plan: IV Moderate Sedation Medication:Versed, Fentanyl 12:03:19 Use device set Radial Dx or PCI 12:03:20 ACIST Syringe (45465) opened to sterile field. 12:03:20 Medline Cath Pack ([id number]) opened to sterile field. 12:03:21 Bag Decanter (2002S) opened to sterile field. 12:03:21 DIAGNOSTIC WIRE .035 260cm J wire (098035) opened to sterile field. 12:03:21 ACIST Hand Control (70271) opened to sterile field. 12:03:22 ACIST Manifold (37576) opened to sterile field. 12:03:23 Tegaderm 4 x 4 (1626W) opened to sterile field. 12:03:24 SHEATH 6Fr Prelude Radial ([id number]) opened to sterile field. 12:03:25 MBrace Wrist Support ([id number]) opened to sterile field. 12:03:46 Versed 2 mg I.V. was administered by Cathleen Brooks RN; for sedation; 12:03:52 Fentanyl 50 mcg I.V. was administered by Cathleen Brooks RN; for sedation; 12:06:08 Procedure started. 12:06:13 Local anesthetic to right radial artery with Lidocaine 2% by Landon Barroso MD.INITIAL ACCESS ONLY 12:06:35 Versed 1 mg I.V. was administered by Cathleen Brooks RN; for sedation; 12:06:38 Fentanyl 50 mcg I.V. was administered by Cathleen Brooks RN; for sedation; 12:07:11 A 6 Fr Short sheath was inserted into the Right Radial artery 12:07:19 A DIAGNOSTIC Amagon 110cm 5 Fr catheter ([id number]) was advanced over the wire and used for Multi-vessel Angiography. 12:08:00 Radial Cocktail (Verapomil 2mg/Nitro 400mcg/Heparin 1500units) 1 syringe I.A. was administered by Landon Barroso MD; for vasodilation; 12:09:40 LV hemodynamics recorded. 12:09:41 LV gram done using VALENZUELA 12:09:49 Injector settings: Ml/sec: 12, Volume: 8, 12:10:24 EF : 50 % 12:10:29 RCA angiography performed. 12:10:32 Injector settings: Ml/sec: 3, Volume: 6, 12:12:55 Vital chart was started 12:13:13 Vital chart was stopped 12:17:26 Catheter removed. 12:18:07 TR BAND Standard ([id number]) opened to sterile field. 12:18:13 Sheath removed intact; hemostasis achieved with Mechanical Compression to the Right Radial artery. 12:18:15 Procedure ended.(Physican Out) 12:18:23 Fluoroscopy time 02.20 minutes. 12:18:27 Fluoroscopy dose: 340 mGy 12:18:27 Flurop Dose total: 340 12:18:31 Contrast amount:Isovue 300 40ml. 12:18:33 Sharps counted by scrub and verified by R.N. 12:18:35 TR band inflated with 12cc of air. 12:18:37 Insertion/operative site no bleeding no hematoma. 12:18:41 Post right radial artery:stable 12:18:43 Post Procedure Pulses reassessed and unchanged 12:18:45 Post procedure rhythm: unchanged. 12:18:47 Estimated blood loss: 5 ml 12:18:49 Post procedure instruction explained to patient.Patient verbalizes understanding. 12:18:49 Patient needs reinforcement of post procedure teaching. 12:19:12 Procedure type changed to Cath procedure, Diagnostic procedure, LHC, LHC w/Coronaries, Sedation Charges, Moderate Sedation up to 15 minutes 12:19:14 Procedure and supply charges have been captured, reviewed, submitted and are correct. 12:19:18 Procedure Complication : No complications 12:19:20 See physician's report for complete and final results. 12:19:45 Report given to ED. 12:22:20 Report given to Pre/Post Procedure Room. 12:22:22 Patient transfered to Pre/Post Procedure Room with Stretcher. 12:22:24 Procedure ended. 12:22:24 Full Disclosure recording stopped 12:22:28 End room use (Document Last) Device Usage Item Name Manufacture Quantity Catalog Number Hospital Part Current M inimal Lot# / Charge Number Stock Stock Serial# Code ACIST Syringe Acist 1 36628 078811 081472 425125 2 0 (52451) Medical Systems Inc Medline Cath Cardinal 1 [id number] 066568 88804 588767 5 [facility] ([id number]) Bag Decanter Microtek 1 2001S 414802 13857 489506 5 () Medical Inc. DIAGNOSTIC WIRE [facility] Stephan 1 046156 463845 524302 769149 3 0 .035 260cm J wire (915054) ACIST Hand Acist 1 61180 605842 973281 019950 5 Control (26804) [employer] Systems Inc ACIST Manifold Acist 1 72281 702979 225716 547642 5 (80591) [employer] Systems Inc Tegaderm 4 x 4 3M 1 1626W 569481 673182 044051 5 (1626W) SHEATH 6Fr Merit 1 [id number] 441768 603447 201530 5 Prelude Radial Medical ([id number]) MBrace Wrist Advanced 1 140-0250-00 820484 49353 861035 5 Support Vascular ([id number]) Dynamics DIAGNOSTIC Terumo 1 96-1929 670589 553017 308667 5 Amagon 110cm 5 Fr catheter (277282) TR BAND Terumo 1 [id number] 941002 079633 084081 4 0 Standard ([id number]) Signature Audit [place] Stage Time Signature Unsigned Intra-Procedure 01/19/2018 Laura Valle 12:25:18 PM RT(R) Signatures Monitor : Laura Valle RT Signature : Date : Time : [place] [id number] [place] [address]
[2018-01-19 07:20] VITALS: BP 106/72
[2018-01-19 07:36] LABS: BASOPHILS 0.4 % (0-2); HEMATOCRIT 34.6 % (42.0-54.0); HEMOGLOBIN 11.9 g/dL (13.5-17.5); MCH 31.2 pg (26.0-34.0); MCHC 34.4 g/dL (31.0-37.0); MCV 90.6 fL (80.0-100.0); MEAN PLATELET VOLUME 8.8 fL (7.4-10.4); MONOCYTES 9.5 % (2-11); NEUTROPHILS 70.1 % (40-80); PLATELET COUNT 112 10x3/uL (130-400); RBC 3.82 10x6/uL (4.20-6.10); RDW 13.3 % (11.5-14.5); WBC 4.9 10x3/uL (4.8-10.8)
[2018-01-19 07:45] VITALS: BP 111/70
[2018-01-19 07:59] LABS: ALBUMIN 3.1 g/dL (3.4-5.0); ALKALINE PHOSPHATASE 109 U/L (46-116); ALT (SGPT) 23 U/L (10-68); CALC OSMOLALITY 285 mosm/kg (275-300); CALCIUM 7.9 mg/dL (8.5-10.1); CARBON DIOXIDE 30.2 mmol/L (21.0-32.0); CHLORIDE - SERUM 109 mmol/L (98-107); CREATININE - SERUM 0.8 mg/dL (0.6-1.3); GLUCOSE 103 mg/dL (74-106); POTASSIUM - SERUM 4.5 mmol/L (3.5-5.1); PROTEIN - SERUM 5.5 g/dL (6.4-8.2); SODIUM 144 mmol/L (136-145); UREA NITROGEN 9 mg/dL (7-18); eGFR NON AFRICAN AMERICAN > 90 mL/min (90-120)
[2018-01-19 08:00] VITALS: BP 106/75
[2018-01-19 08:10] LABS: CREATINE KINASE 48 UL (21-232)
[2018-01-19 08:17] LABS: TROPONIN-I < 0.017 ng/mL (0.000-0.060)
[2018-01-19 08:20] VITALS: BP 121/83
[2018-01-19 21:35] VITALS: BP 108/66
[2018-01-20 01:10] VITALS: BP 90/56
[2018-01-20 01:24] VITALS: BP 108/66; Ht 170.2 cm; Wt 77.3 kg
[2018-01-20 05:05] VITALS: BP 92/54
[2018-01-20 07:58] LABS: PLT FUNCT.(P2Y12) PLAVIX 88 PRU (194-418)
[2018-01-20 08:16] VITALS: BP 94/64
[2018-01-20 11:14] VITALS: BP 97/60
[2018-01-21 10:14] LABS: HEPATITIS C ANTIBODY <0.1 (0.0-0.9)
== END 2018-01-20 14:00 | disposition home or self-care (01) | DRG 287 ==
LOC: D.M2 06:57 → D.CATH 06:57 → D.ER 06:57 → EDSTATUS 08:00 → D.M2 16:45 → D.CATH 16:46 → D.M2 16:47
PROVIDERS: Emergency Medicine; Internal Medicine Cardiovascular Disease
PROC: B2151ZZ Fluoroscopy of Left Heart using Low Osmolar Contrast (ICD-10-PCS; 2018-01-19)
PROC: 4A023N7 Measurement of Cardiac Sampling and Pressure, Left Heart, Percutaneous Approach (ICD-10-PCS; 2018-01-19)
PROC: B2111ZZ Fluoroscopy of Multiple Coronary Arteries using Low Osmolar Contrast (ICD-10-PCS; principal; 2018-01-19 08:00)
DX: I25.110 Atherosclerotic heart disease of native coronary artery with unstable angina pectoris (principal); Z95.5 Presence of coronary angioplasty implant and graft; J44.9 Chronic obstructive pulmonary disease, unspecified; Z86.73 Personal history of transient ischemic attack (TIA), and cerebral infarction without residual deficits; F41.8 Other specified anxiety disorders

== ENCOUNTER 2018-01-25 05:00 | Inpatient (IN) | payer MEDICARE ==
[2018-01-23 14:02] LABS: BASOPHILS 0.2 % (0-2); EOSINOPHILS 5.1 % (0-7); HEMATOCRIT 38.8 % (42.0-54.0); HEMOGLOBIN 13.5 g/dL (13.5-17.5); IMMATURE GRANULOCYTES 0.7 % (0-5); LYMPHOCYTES 11.4 % (15-50); MCH 31.3 pg (26.0-34.0); MCHC 34.8 g/dL (31.0-37.0); MEAN PLATELET VOLUME 8.2 fL (7.4-10.4); MONOCYTES 9.4 % (2-11); NEUTROPHILS 73.2 % (40-80); PLATELET COUNT 131 10x3/uL (130-400); RBC 4.31 10x6/uL (4.20-6.10); RDW 13.2 % (11.5-14.5); WBC 5.9 10x3/uL (4.8-10.8)
[2018-01-23 14:25] LABS: APPEARANCE HAZY (CLEAR); BACTERIA FEW /hpf (NONE SEEN); BILIRUBIN NEGATIVE (NEGATIVE); COLOR YELLOW (YELLOW); EPITHELIAL CELLS OCC /hpf (0-5); GLUCOSE NEGATIVE (NEGATIVE); KETONE NEGATIVE (NEGATIVE); NITRITE NEGATIVE (NEGATIVE); PROTEIN NEGATIVE (NEGATIVE); RED CELLS - URINE RARE /hpf (0-5); SPECIFIC GRAVITY 1.015 (1.005-1.020); SPERMATOZOA OCC /hpf (NONE SEEN); UROBILINOGEN NORMAL (NORMAL); WHITE CELLS - URINE RARE /hpf (0-5)
[2018-01-23 14:28] LABS: ALBUMIN 3.8 g/dL (3.4-5.0); ALKALINE PHOSPHATASE 123 U/L (46-116); ALT (SGPT) 33 U/L (10-68); BILIRUBIN - TOTAL 1.16 mg/dL (0.2-1.3); CALC OSMOLALITY 284 mosm/kg (275-300); CALCIUM 8.5 mg/dL (8.5-10.1); CARBON DIOXIDE 30.2 mmol/L (21.0-32.0); CHLORIDE - SERUM 106 mmol/L (98-107); CHOLESTEROL, TOTAL 99 mg/dL (0-200); CREATININE - SERUM 0.9 mg/dL (0.6-1.3); GLUCOSE 87 mg/dL (74-106); PHOSPHOROUS 4.1 mg/dL (2.5-4.9); POTASSIUM - SERUM 4.2 mmol/L (3.5-5.1); PROTEIN - SERUM 6.5 g/dL (6.4-8.2); SODIUM 144 mmol/L (136-145); T4 THYROXIN - FREE 0.95 ng/dL (0.76-1.46); THYROID STIMULATING HORMONE 3.78 uIU/mL (0.36-3.74); UREA NITROGEN 11 mg/dL (7-18); URIC ACID 4.4 mg/dL (2.6-7.2); eGFR NON AFRICAN AMERICAN 89 mL/min (90-120)
[2018-01-23 14:29] LABS: PLT FUNCT.(P2Y12) PLAVIX 174 PRU (194-418)
[2018-01-23 14:43] LABS: APTT 28.8 SECONDS (22.8-39.4); INR 1.02 (0.85-1.17)
[2018-01-25] VITALS (41 sets, daily range): BP systolic 89–117; BP diastolic 51–74; BMI 20.4
[~2018-01-25] VITALS: Ht 170.2 cm; Wt 54.1 kg
--- NOTE | ~2018-01-25 | HP ---
PATIENT: KEON NAGEL MEDICAL RECORD: [id number] ACCOUNT: [id number] LOCATION:[facility]06 : 50 ADMISSION DATE: 01/25/18 HISTORY AND PHYSICAL EXAMINATION NameGEKEON CUELLAR (67yo, M) ID# [id number]. Date/Time01/23/2018 10:82CZZAA1950[facility] Dept.NP_[place] [facility] ClinicProviderEDMAURISIO HERZOG MDInsuranceMed Primary: [place] Insurance # : [id number] Referring Provider Name : RAMOS MCKEON Employer Name : UNKNOWN Med Secondary: [place]) Insurance # : [id number] Referring Provider Name : RAMOS MCKEON Employer Name : UNKNOWN Prescription: CMX - Member is eligible. Prescription: [facility] MEDICAID ADMINISTRATION - Member is eligible. Chief Complaint Coronary artery disease eval for cabg Patient's Care Team Referring Provider (): RAMOS MCKEON: [address] [place] [address], , [facility] ([facility] [address] [facility] [address], , Vitals BP:100/50 sitting L arm 01/23/2018 11:03 am 98/54 sitting R arm 01/23/2018 11:04 amBP Cuff Size:adult 01/23/2018 11:03 am adult 01/23/2018 11:04 amHR:78.reg 01/23/2018 11:05 amHt:5 ft 8 in 01/23/2018 11:05 amNotes:states having chest pain that lasts minutes up to one hour. Has nitro but has not used it this weekend 01/23/2018 11:06 amAllergies Reviewed Allergies GABAPENTINHYDROMORPHONEIODINEMedications Reviewed Medications ALPRAZolam 1 mg tablet TK 1 T PO TID01/05/18 filledCaremarkAspir- enteredKathy Wilsonatorvastatin 80 mg tablet TK 1 T PO QD01/02/18 atzpdbNyatdrgwdbxpqmwbdo-mavdddcehluhr-rhjabbcv 50 mg-325 mg-40 mg tablet TK 1 T PO DAILY PRN01/23/14 filledsurescriptsChantix 1 mg tablet TK 1 T PO BID UTD08/02/17 filledCaremarkcitalopram 20 mg tablet TK 1 T PO ONCE PER DAY.07/08/17 filledCaremarkEpiPen 0.3 mg/0.3 mL injection, auto-injector Take by injection route.01/23/18 enteredKathy WilsonoxyCODONE-acetaminophen 10 mg-325 mg tablet TK 1 T PO Q 8-12 H PRN P001/02/18 filledCaremarkProblems Reviewed Problems Coronary artery stenosis - Onset: 01/23/2018 Peripheral vascular disease Neurogenic claudication Family History Reviewed Family History HISTORY AND PHYSICAL [id number] KEON NAGEL Non-contributory.Social History Reviewed Social History General Occupation: RETIRED Marital status: Smoking Status: Current every day smoker Smoker (1/2 PPD) Alcohol intake: None Caffeine intake: Heavy Surgical History Reviewed Surgical History Other - BACK SURGERY Past Medical History Reviewed Past Medical History Blood Clots: Y Stroke: Y Documents for Discussion Discussed the following documents: HEPATITIS (A+B+C) PANEL, SERUM - 01/23/18 Results: - SERUM OR PLASMA HEPATITIS A VIRUS IGM ANTIBODY DETECTION BY IMMUNOASSAY: NEGATIVE NEGATIVE - SERUM OR PLASMA HEPATITIS B VIRUS CORE IGM ANTIBODY DETECTION BY IMMUNOA: NEGATIVE NEGATIVE - SERUM OR PLASMA HEPATITIS B VIRUS SURFACE ANTIGEN DETECTION BY IMMUNOASSA: NEGATIVE NEGATIVE - HCV AB S/CO SERPL EIA: < 0.1 US, DUPLEX, CAROTID ARTERY - 01/19/18 CARDIAC CATHETERIZATION (SURG) - 01/19/18 Screening None recorded. HPI Dyspnea Reported by patient. Quality: dyspnea Severity: severe Duration: sensation/episode lasts 5 minutes Onset/Timing: daily Context: with activity; at rest Aggravating Factors: activity Associated Symptoms: chest pain/discomfort; fatigue Fatigue Reported by patient. Quality: continuous; symptoms worse during the day Duration: constant Timing: worse Context: symptoms do not improve on weekends/vacations Modifying Factors: no new stressors in life Associated Symptoms: no drug/alcohol withdrawal; no depression; no anxiety; no sleep disturbances; no snoring; periods of not breathing (apnea) have not been observed; no recent change in weight coronary artery disease with angina pectoris ROS HISTORY AND PHYSICAL [id number] KEON NAGEL Patient reports exercise intolerance but reports no fever, no night sweats, no significant weight gain, and no significant weight loss. He reports shortness of breath when walking but reports no chest pain, no arm pain on exertion, no shortness of breath when lying down, no palpitations, and no known heart murmur. He reports cough and shortness of breath but reports no wheezing and no coughing up blood. He reports muscle aches (right leg), muscle weakness (right foot), and arthralgias/joint pain (right foot) but reports no back pain and no swelling in the extremities. He reports no abnormal mole, no jaundice, and no rashes; ecchymoses. He reports no dry eyes, no irritation, and no vision change. He reports no difficulty hearing and no ear pain. He reports no frequent nosebleeds and no nose/sinus problems. He reports no sore throat, no bleeding gums, no snoring, no dry mouth, no mouth ulcers, no oral abnormalities, and no teeth problems. Wei cotter reports no jugular vein distension and no swollen glands. He reports no abdominal pain, no vomiting, normal appetite, no diarrhea, not vomiting blood, no nausea, and no constipation. He reports no incontinence, no difficulty urinating, no hematuria, and no increased frequency. He reports no loss of consciousness, no weakness, no numbness, no seizures, no dizziness, and no headaches. He reports no depression, no sleep disturbances, feeling safe in relationship, and no alcohol abuse. He reports no fatigue. He reports no swollen glands and no bruising. He reports no runny nose, no sinus pressure, no itching, no hives, and no frequent sneezing. ROS as noted in the HPI Physical Exam Patient is a 67-year-old male. Constitutional: General Appearance healthy-appearing and thin. Level of Distress NAD. Ambulation ambulating normally. Cardiovascular: Apical Impulse not displaced or no thrill. Heart Auscultation normal s1 and s2; no murmurs, rubs, or gallops; and RRR. Arterial Pulses no abdominal aorta bruits, femoral bruits, or popliteal bruits and 2+ bilateral, carotid 2+ bilateral, femoral 2+ bilateral, popliteal 2+ bilateral, and dorsalis pedis 2+ bilateral. Edema no edema or varicosities. Lungs: Repiratory Effort no dyspnea. Percussion no dullness or flatness and hyperresonance . Auscultation no wheezing, rhonchi, or rales / crackles and breathing sounds normal, good air movement, and CTA except as noted. Abdomen: Bowl Sounds normal. Inspection and Palpation no tenderness, guarding, masses, or rebound tenderness and soft and non-distended. Liver non-tender and no hepatomegaly. Spleen non-tender and no splenomegaly. Hernia none palpable. Musculoskeletal System: Gait And Stance normal gait and stance. Digits and Nails normal nails and no cyanosis. Joints, Bones, and Muscles limited ROM and abnormal strength. Neurologic: Cranial Nerves grossly intact. Reflexes DTRs 2+ bilaterally throughout. Sensation grossly intact. Lymph Nodes: Lymph Nodes no cervical LAD, supraclavicular LAD, axillary LAD, or inguinal LAD. Eyes: Lids and Conjunctivae no discharge or pallor and non-injected. Pupils PERRLA. Cornea grossly intact. EOM EOMI. Lens clear. Sclerae non-icteric. Neck: Neck no masses, enlarged lymph nodes, or carotid bruits and supple and trachea HISTORY AND PHYSICAL [id number] SHONA,KEON E midline. Thyroid no enlargement or nodules and non-tender. Skin: Inspection and Palpation no rash, lesions, ulcers, jaundice, or abnormal nevi. Assessment / Plan coronary artery disease with angina pectoris 1. Coronary artery stenosis I25.10: Atherosclerotic heart disease of [place] coronary artery without angina pectoris Discussion Notes ssevere occlusive coronary artery disease. His posterior descending coronary artery may not be bypassable due to its distal nature. I have discussed h is disease process with him and his daughter in detail as well as the alternative methods of treatment. We discussed coronary artery bypass and the expected benefits and risks which include bleeding, infection, stroke, , and the imponderables. He und erstands all of the above and wishes to proceed with planned surgery. CHA HERZOG MD at 1256 CC: [id number] DICTATION DATE: 01/23/18 1030 DENTAL DIRECTOR: JORGE LUIS 01/23/18 1549 ADM IN [facility] [address] [place] [address]
--- NOTE | ~2018-01-25 | TEE ---
PATIENT:KEON NAGEL MEDICAL RECORD: [id number] LOCATION:[place] [address] AGE OF PATIENT: 67 ADMISSION DATE: 01/25/18 SEX: M REFERRING PHYSICIAN: INTERPRETING PHYSICIAN: ADENIKE MONTOYA MD TRANSESOPHAGEAL ECHOCARDIOGRAM Date: 01/25/18 KARTHIK CHARGE Y INDICATIONS: CABG PREMEDICATIONS: PATIENT'S RESPONSE PROCEDURE DOPPLER MEASUREMENTS: LVIT LA PA RA LVOT RVOT Asc. Ao AV Gradient Peak AV Mean AV Area MV Gradient Peak MV Mean MV Area INTERPRETATION: LVd: 3.3 cm LVs: 1.7 cm Doppler: 2-D: COLOR FLOW DOPPLER NORMAL SALINE STUDY: MISCELLANOUS: DIAGNOSIS: PLAN: Money Room Teller:4 Dr. Montoya Corporate Strategy Intern: 1 ESMER BABIN COMMENTS: DATE OF SERVICE: PROCEDURE: Transthoracic echocardiogram that is intraoperatively done. PROCEDURE IN DETAIL: I am reading the intraoperative transesophageal echocardiogram. The prebypass ejection fraction appears to be normal with a function of 50% to 55%. Mitral valve function looks to be normal. Under the operative conditions, there is a catheter artifact in the right atrium. Tricuspid valve appears grossly normal during the procedure. The aortic valve TRANSESOPHAGEAL ECHOCARDIOGRAM REPORT [id number] KEON NAGEL appears to be normal. Pulmonic valve appears to be normal. Ejection fraction as demonstrated on this appears to be normal throughout the procedure and post procedure. TRANSINT:[id number] Voice Confirmation ID: [id number] DOCUMENT ID: [id number] at 1436 CC: [id number] DICTATION DATE: 01/27/18 1124 COMPUTERIZED TABLE CUTTER: 01/27/18 1144 ADM IN [place] [address] [place] [address]
--- NOTE | ~2018-01-25 | CN ---
PATIENT NAME:AUBREY HARDEN MEDICAL RECORD: [id number] : 50 LOCATION:[facility] ADMIT DATE: 01/25/18 ACCOUNT: [id number] CONSULTING PHYSICIAN: ZEB CERDA MD REFERRING PHYSICIAN: CHA HERZOG MD DATE OF CONSULTATION: 01/27/2018 CONSULT REQUESTING PHYSICIAN: Dr. Herzog. REASON FOR CONSULTATION: Acute exacerbation of COPD, status post CABG. HISTORY OF PRESENT ILLNESS: Mr. Harden is a 67-year-old gentleman who underwent CABG. The patient is still an everyday smoker with a history of COPD and he was having shortness of breath, wheezing, coughing. Denies any fever or chill. He does have the chest pain with the cough. REVIEW OF SYSTEMS: Mainly in the history of present illness. PAST MEDICAL HISTORY: 1. History of CVA. 2. COPD. 3. Coronary artery disease. 4. History of CA of colon. 5. History of anxiety and depression. PAST SURGICAL HISTORY: 1. He is now status post CABG. 2. He has a back surgery. 3. Shoulder replacement. 4. Multiple stent placements. ALLERGIES: He is allergic to HYDROCODONE and IODINE. MEDICATIONS: On [employer] is reviewed. PERSONAL AND SOCIAL HISTORY: The patient is still current everyday smoker. He is a nondrinker. FAMILY HISTORY: Noncontributory. PHYSICAL EXAMINATION: GENERAL: Now, the patient is lying comfortably. He is not in acute distress. VITAL SIGNS: The blood pressure is 103/74, pulse is 97, respiration is 19, temperature is 98.8, SpO2 is 98% on nasal cannula oxygen. HEENT: Conjunctivae are pink. Sclerae are not icteric. NECK: Supple, no JVD. CHEST: Excursion is minimal on both sides. There are bibasilar crackles. No wheezing. HEART: Rhythm regular, normal sound, no murmur. ABDOMEN: Soft, bowel sounds present. No hepatosplenomegaly. RECTAL: Deferred. EXTREMITIES: No cyanosis, no clubbing, no pedal edema. SKIN: There is an incision luisa. IMAGING: Chest radiograph: There are bibasilar atelectasis and infiltrate. CONSULT REPORT [id number] AUBREY HARDEN There are postsurgical changes. LABORATORY DATA: CBC: WBC 12.4, hemoglobin 11, hematocrit 31.8, the platelet count is 106. ABG: The pH was 7.31, pCO2 52.5, the pO2 was 64. IMPRESSION: 1. Acute exacerbation of COPD. 2. Ftgue-pm-zqcuelq hypoxic hypercapnic respiratory failure. 3. Bibasilar infiltrates most likely pneumonia consistent with hospital-acquired pneumonia. 4. Tobacco dependence syndrome. 5. Leukocytosis. 6. Status post CABG. 7. Hypertension. 8. Coronary artery disease. RECOMMENDATION: 1. Start methylprednisolone IV, albuterol and ipratropium nebulizer, Brovana and budesonide nebulizer. We will start on Levaquin and cefepime to cover for Gram-negative mei and hospital-acquired pneumonia. 2. BiPAP with supplemental oxygen as required. 3. Mucinex DM [address] Herzog, thank you for involving me in the care of Mr. Aubrey Harden. TRANSINT:[id number] Voice Confirmation ID: [id number] DOCUMENT ID: [id number] ZEB CERDA MD at 1212 CC: CHA HERZOG [id number] DICTATION DATE: 01/27/18 1232 TAPING MACHINE OPERATOR: 01/27/18 1250 DIS IN 01/31/18 [id number] [place] [address]
--- NOTE | ~2018-01-25 | MORECARE ---
CASE MANAGEMENT DISCHARGE SUMMARY PATIENT: KEON NAGEL UNIT: [id number] ADM DATE: 01/25/18 AGE: 67 : 50 SEX: M ROOM/BED: [facility] AUTHOR: CASE, SUPERVISOR SPRING UP PHYSICIAN: REFERRING PHYSICIAN: CHA HERZOG MD DATE OF SERVICE: 01/25/18 Discharge Plan Patient Name: KEON NAEGL Facility: [facility]:[place] : 1950 Planned Disposition: Home Anticipated Discharge Date: Discharge Date: 01/31/2018 Expected LOS: Initial Reviewer: [email or web address] Initial Review Date: 01/30/2018 Generated: 02/01/18 10:12 am Comments DCP- Discharge Planning Updated by [email or web address]: Shanna Chen on 01/31/18 2:[address] Patient Name: KEON NAGEL Encounter No: [id number] : 1950 Primary Insurance: MEDICARE A & B Anticipated DC Date: Planned Disposition: Home External Planned Provider: : DCP follow-up note: Patient and family in agreement with discharge plan. CM received order to set up nebulizer for home. [facility] notified and orders sent. IMM explained and served. Case management will follow and assist as needed. Shanna Chen DCP- Discharge Planning Updated by [email or web address]: Shanna Chen on 01/30/18 10:[address] Patient Name: KEON NAGEL Admission Status: Urgent Accout number: [id number] Admission Date: 01-25-2018 : 1950 Admission Diagnosis:ATHSCL HEART DISEASE OF [place] COR ART W UNSTABLE ANG P Attending: CHA HERZOG Current LOS: 5 Anticipated DC Date: Planned Disposition: Home Primary Insurance: MEDICARE A & B Discharge Planning Comments: CM met with patient and son-n-law (Lopez) regarding discharge planning. Patient plans on returning home with daughter and son-n-law checking in on him. Patient states he will have family to transport him home. Patient states he doesn't currently have any medical equipment within the home. He states that he would like a rolling walker with seat upon discharge if needed. Patient may need walk test if 02 is needed upon discharge. CM will continue to follow and assist as needed for discharge planning. Implementation Advisor: Shanna Chen DCPIA - Discharge Planning Initial Assessment Updated by [email or web address]: Shanna Chen on 01/30/18 11:16 am * Is the patient Alert and Oriented? Yes * How many steps to enterexit or inside your home? * PCP Dr. Sharan Lawson * Pharmacy [facility] * Preadmission Environment Home Alone * ADLs Independent * Equipment None * List name and contact numbers for known caregivers / representatives who currently or will assist patient after discharge: Richard Luther (daughter) [phone] [phone] Favio Luther (son-n-law) [phone] * Verbal permission to speak to the caregivers and representatives has been obtained from the patient. Yes * Community resources currently utilized None * Additional services required to return to the preadmission environment? No * Can the patient safely return to the preadmission environment? Yes * Has this patient been hospitalized within the prior 30 days at any hospital? Yes External Providers External Provider: Patricia Next Contact Date: Service Request Date: Service Type: Resolution: Reviewer: Comments: Coverage Notice Reviewer: [id number] - Shanna Chen Notice Issued Date-Time: 01/31/2018 15:05 Notice Type: IM Discharge Notice Notice Delivered To: Patient Relationship to Patient: Self Prototype Model Maker Name: Delivery Method: HAND - Hand Delivered Audrey Days: Prior Verbal Notification: Recipient Understood Notice: Yes Recipient Signature: Yes Med Rec Note Co-signed by Attending: Coverage Notice Comment: Patient Name: KEON NAGEL Page [phone] All edits/amendments must be made on the electronic document DICTATION DATE: 02/01/18910 CITY DIRECTOR: 02/01/18910 RPT#: [id number] DC DATE:01/31/18 STATUS: DIS IN [id number] [place] [address] END OF REPORT
--- NOTE | ~2018-01-25 | OP ---
PATIENT NAME: KEON NAGEL MEDICAL RECORD: [id number] :50 [facility] ADMISSION DATE:01/25/18 SURGEON: MARK HOLLAND MD DATE OF OPERATION: 01/25/2018 SURGEON: Mark Holland MD ANESTHESIA: General endotracheal, Dr. Mcclure. OPERATION PERFORMED: Coronary artery bypass. 1. Left internal thoracic, left anterior descending. 2. Reverse saphenous vein graft to the first diagonal coronary artery. PREOPERATIVE DIAGNOSES: Angina pectoris and occlusive coronary artery disease. POSTOPERATIVE DIAGNOSES: Angina pectoris and occlusive coronary artery disease. INDICATION FOR OPERATION: Symptomatic atherosclerosis of coronary arteries with angina. FINDINGS OF THE OPERATION: The left internal thoracic artery was adequate for grafting. The reverse saphenous vein graft from the left thigh was excellent for grafting. The target vessels were of good quality. The right coronary artery, the posterior descending had a lesion in the mid posterior descending artery and was not graftable. There was not enough artery distal to a planned insertion site. ESTIMATED BLOOD LOSS: Cell Saver was used. DESCRIPTION OF PROCEDURE: After informed consent, adequate preoperative medication evaluation, the patient was brought to the operating room, placed on table in supine position. After induction of general endotracheal anesthesia and application of appropriate monitoring devices, the chest, neck, abdomen, and both legs were prepped and draped in a sterile field, utilizing Betadine scrub, alcohol, and Betadine solution. Betadine-impregnated drape was also used. Saphenous vein was harvested from the left thigh and prepared for reverse saphenous vein grafting. Leg was closed over drains utilizing 3-0 Vicryl and skin staci. A median sternotomy incision was used and dissection carried down to the fascia. Hemostasis maintained with electrocautery. Left internal thoracic was taken down and prepared for grafting. The patient was given a calculated dose of heparin, cannulated in a standard fashion utilizing 1 aortic, one 2-stage cannula in atrium and inferior vena cava. The patient was placed on cardiopulmonary bypass, cooled to 32 degrees centigrade. A cross clamp was placed just proximal to the aortic cannula and the patient was given cardioplegic solution through the aortic root. The patient was given a cold induction and cold maintenance. The patient was given cold intermittent cardioplegic solution throughout the procedure through the grafts, through the root or a combination of both. The first vessel to be grafted was the first diagonal coronary artery. It was grafted end-to-side utilizing a running 7-0 Prolene suture. The graft was measured back to the aorta and the proximal anastomosis fashioned utilizing running 6-0 Prolene suture. The posterior descending was not graftable. The left internal thoracic was brought through a hole in pericardium, sutured to the left anterior descending end-to-side utilizing a running 8-0 Prolene suture. All maneuvers to remove trapped air in the heart performed. The patient was given warm cardioplegic reperfusion and OPERATIVE REPORT [id number] KEON NAGEL controlled reperfusion. The patient was rewarmed to 37 degrees centigrade. Two atrial and 2 ventricular pacing wires were placed in the heart and brought out through the epigastric area. The patient was weaned from cardiopulmonary bypass. After being stable off bypass, he was given calculated dose of protamine to reverse the heparin. Hemostasis was achieved. A #40 right angle and #36 chest tubes were brought in through the epigastric area and placed in mediastinum. A separate left Jim drain was placed in the left hemithorax. Chest was again irrigated. Instrument count and sponge count were correct times 2. Chest closed in layers utilizing #7 wire on the sternum, #2 Vicryl in the linea alba and pectoralis fascia. Subcutaneous tissue was approximated with 3-0 Vicryl and skin approximated with 3-0 subcuticular Vicryl. Sterile dressings were applied. The patient tolerated the procedure well and was transferred to the CV ICU in satisfactory condition. TRANSINT:[id number] Voice Confirmation ID: [id number] DOCUMENT ID: [id number] MARK HOLLAND MD at 1256 CC: [id number] DICTATION DATE: 01/25/18 1337 [employer] SERGEANT: 01/25/18 1346 ADM IN [facility] [address] [place] [address]
[2018-01-25 08:41] LABS: PLT FUNCT.(P2Y12) PLAVIX 296 PRU (194-418)
[2018-01-25 13:11] LABS: HEMATOCRIT 29.8 % (42.0-54.0); HEMOGLOBIN 10.4 g/dL (13.5-17.5); MCHC 34.9 g/dL (31.0-37.0); MCV 88.7 fL (80.0-100.0); MEAN PLATELET VOLUME 8.6 fL (7.4-10.4); RBC 3.36 10x6/uL (4.20-6.10); RDW 13.3 % (11.5-14.5); WBC 17.7 10x3/uL (4.8-10.8)
[2018-01-25 13:26] LABS: CALC OSMOLALITY 286 mosm/kg (275-300); CALCIUM 7.1 mg/dL (8.5-10.1); CARBON DIOXIDE 25.7 mmol/L (21.0-32.0); CHLORIDE - SERUM 110 mmol/L (98-107); CREATININE - SERUM 0.7 mg/dL (0.6-1.3); POTASSIUM - SERUM 4.4 mmol/L (3.5-5.1); SODIUM 142 mmol/L (136-145); UREA NITROGEN 9 mg/dL (7-18); eGFR NON AFRICAN AMERICAN > 90 mL/min (90-120)
[2018-01-25 13:37] LABS: GLUCOSE 192 mg/dL (74-106)
[2018-01-25 14:09] LABS: APTT 38.9 SECONDS (22.8-39.4)
[2018-01-25 14:18] LABS: INR 1.53 (0.85-1.17); PROTIME 17.9 SECONDS (11.6-15.0)
[2018-01-25 20:45] LABS: HEMATOCRIT 20.6 % (42.0-54.0)
[2018-01-25 21:01] LABS: HEMOGLOBIN 7.3 g/dL (13.5-17.5)
[2018-01-25 22:49] LABS: HEMATOCRIT 29.3 % (42.0-54.0); HEMOGLOBIN 10.1 g/dL (13.5-17.5)
[2018-01-26] VITALS (69 sets, daily range): BP systolic 88–111; BP diastolic 51–72; BMI 21.1
[2018-01-26 05:03] LABS: HEMATOCRIT 31.8 % (42.0-54.0); MCH 30.2 pg (26.0-34.0); MCHC 34.6 g/dL (31.0-37.0); MCV 87.4 fL (80.0-100.0); MEAN PLATELET VOLUME 8.9 fL (7.4-10.4); RBC 3.64 10x6/uL (4.20-6.10); RDW 14.3 % (11.5-14.5)
[2018-01-26 05:08] LABS: WBC 12.4 10x3/uL (4.8-10.8)
[2018-01-26 05:19] LABS: ALBUMIN 3.9 g/dL (3.4-5.0); ALKALINE PHOSPHATASE 54 U/L (46-116); ALT (SGPT) 24 U/L (10-68); BILIRUBIN - TOTAL 2.76 mg/dL (0.2-1.3); CALC OSMOLALITY 287 mosm/kg (275-300); CALCIUM 8.3 mg/dL (8.5-10.1); CARBON DIOXIDE 25.6 mmol/L (21.0-32.0); CHLORIDE - SERUM 107 mmol/L (98-107); CREATININE - SERUM 0.8 mg/dL (0.6-1.3); GLUCOSE 145 mg/dL (74-106); POTASSIUM - SERUM 4.6 mmol/L (3.5-5.1); PROTEIN - SERUM 5.3 g/dL (6.4-8.2); SODIUM 143 mmol/L (136-145); eGFR NON AFRICAN AMERICAN > 90 mL/min (90-120)
[2018-01-26 05:22] LABS: UREA NITROGEN 12 mg/dL (7-18)
[2018-01-27] VITALS (25 sets, daily range): BP systolic 96–116; BP diastolic 61–77
[2018-01-27 05:46] LABS: HEMATOCRIT 30.7 % (42.0-54.0); HEMOGLOBIN 10.5 g/dL (13.5-17.5); MCH 30.4 pg (26.0-34.0); MCHC 34.2 g/dL (31.0-37.0); MEAN PLATELET VOLUME 8.9 fL (7.4-10.4); RBC 3.45 10x6/uL (4.20-6.10); RDW 14.6 % (11.5-14.5); WBC 9.3 10x3/uL (4.8-10.8)
[2018-01-27 05:59] LABS: ALBUMIN 3.6 g/dL (3.4-5.0); BILIRUBIN - TOTAL 2.96 mg/dL (0.2-1.3); PROTEIN - SERUM 5.5 g/dL (6.4-8.2)
[2018-01-27 06:03] LABS: ANION GAP 10.9 mmol/L (8-16); CREATININE - SERUM 1.1 mg/dL (0.6-1.3); POTASSIUM - SERUM 3.9 mmol/L (3.5-5.1)
[2018-01-28] VITALS (25 sets, daily range): BP systolic 99–133; BP diastolic 62–87; Ht 170.2 cm; Wt 54.1 kg
[2018-01-28 06:26] LABS: HEMATOCRIT 27.8 % (42.0-54.0); HEMOGLOBIN 9.5 g/dL (13.5-17.5); MCH 30.2 pg (26.0-34.0); MCHC 34.2 g/dL (31.0-37.0); MCV 88.3 fL (80.0-100.0); PLATELET COUNT 90 10x3/uL (130-400); RBC 3.15 10x6/uL (4.20-6.10); RDW 14.4 % (11.5-14.5); WBC 10.6 10x3/uL (4.8-10.8)
[2018-01-28 06:27] LABS: ALBUMIN 3.1 g/dL (3.4-5.0); ALKALINE PHOSPHATASE 107 U/L (46-116); BILIRUBIN - TOTAL 1.64 mg/dL (0.2-1.3); CALC OSMOLALITY 277 mosm/kg (275-300); CARBON DIOXIDE 29.2 mmol/L (21.0-32.0); CHLORIDE - SERUM 103 mmol/L (98-107); GLUCOSE 127 mg/dL (74-106); POTASSIUM - SERUM 3.8 mmol/L (3.5-5.1); PROTEIN - SERUM 5.3 g/dL (6.4-8.2); SODIUM 136 mmol/L (136-145); UREA NITROGEN 24 mg/dL (7-18)
[2018-01-28 06:34] LABS: ALT (SGPT) 118 U/L (10-68); CREATININE - SERUM 0.7 mg/dL (0.6-1.3); eGFR NON AFRICAN AMERICAN > 90 mL/min (90-120)
[2018-01-28 07:17] LABS: PLATELET ESTIMATE DECREASED
[2018-01-29] VITALS (25 sets, daily range): BP systolic 113–160; BP diastolic 70–97
[2018-01-29 06:52] LABS: BASOPHILS 0.1 % (0-2); EOSINOPHILS 0 % (0-7); HEMATOCRIT 31.1 % (42.0-54.0); HEMOGLOBIN 10.5 g/dL (13.5-17.5); IMMATURE GRANULOCYTES 0.9 % (0-5); LYMPHOCYTES 3.3 % (15-50); MCHC 33.8 g/dL (31.0-37.0); MCV 88.9 fL (80.0-100.0); MEAN PLATELET VOLUME 8.8 fL (7.4-10.4); MONOCYTES 6.8 % (2-11); NEUTROPHILS 88.9 % (40-80); RDW 14.5 % (11.5-14.5)
[2018-01-29 06:58] LABS: PLATELET COUNT 173 10x3/uL (130-400); WBC 17.8 10x3/uL (4.8-10.8)
[2018-01-29 07:27] LABS: ALBUMIN 3.5 g/dL (3.4-5.0); ALKALINE PHOSPHATASE 117 U/L (46-116); CALC OSMOLALITY 279 mosm/kg (275-300); CALCIUM 8.3 mg/dL (8.5-10.1); CARBON DIOXIDE 27.4 mmol/L (21.0-32.0); CHLORIDE - SERUM 102 mmol/L (98-107); GLUCOSE 128 mg/dL (74-106); POTASSIUM - SERUM 4.2 mmol/L (3.5-5.1); PROTEIN - SERUM 5.8 g/dL (6.4-8.2); SODIUM 137 mmol/L (136-145); UREA NITROGEN 25 mg/dL (7-18)
[2018-01-29 07:37] LABS: ALT (SGPT) 171 U/L (10-68); CREATININE - SERUM 0.9 mg/dL (0.6-1.3); eGFR NON AFRICAN AMERICAN 89 mL/min (90-120)
[2018-01-30] VITALS (25 sets, daily range): BP systolic 94–132; BP diastolic 62–90
[2018-01-30 06:06] LABS: HEMATOCRIT 31.9 % (42.0-54.0); HEMOGLOBIN 10.8 g/dL (13.5-17.5); MCH 30.3 pg (26.0-34.0); MCHC 33.9 g/dL (31.0-37.0); MCV 89.4 fL (80.0-100.0); MEAN PLATELET VOLUME 8.5 fL (7.4-10.4); RBC 3.57 10x6/uL (4.20-6.10); RDW 14.5 % (11.5-14.5); WBC 15.2 10x3/uL (4.8-10.8)
[2018-01-30 06:42] LABS: ALBUMIN 3.1 g/dL (3.4-5.0); ALKALINE PHOSPHATASE 144 U/L (46-116); ALT (SGPT) 198 U/L (10-68); BILIRUBIN - TOTAL 1.39 mg/dL (0.2-1.3); CALC OSMOLALITY 280 mosm/kg (275-300); CALCIUM 7.9 mg/dL (8.5-10.1); CARBON DIOXIDE 27.4 mmol/L (21.0-32.0); CHLORIDE - SERUM 107 mmol/L (98-107); CREATININE - SERUM 0.9 mg/dL (0.6-1.3); GLUCOSE 97 mg/dL (74-106); POTASSIUM - SERUM 4.2 mmol/L (3.5-5.1); PROTEIN - SERUM 5.3 g/dL (6.4-8.2); SODIUM 139 mmol/L (136-145); UREA NITROGEN 20 mg/dL (7-18); eGFR NON AFRICAN AMERICAN 89 mL/min (90-120)
[2018-01-31] VITALS (14 sets, daily range): BP systolic 92–118; BP diastolic 57–83
[2018-01-31 06:25] LABS: BASOPHILS 0.1 % (0-2); EOSINOPHILS 0.1 % (0-7); HEMATOCRIT 34.1 % (42.0-54.0); HEMOGLOBIN 11.5 g/dL (13.5-17.5); IMMATURE GRANULOCYTES 1.2 % (0-5); LYMPHOCYTES 4.9 % (15-50); MCH 30.3 pg (26.0-34.0); MCHC 33.7 g/dL (31.0-37.0); MCV 89.7 fL (80.0-100.0); MEAN PLATELET VOLUME 8.8 fL (7.4-10.4); MONOCYTES 4.6 % (2-11); NEUTROPHILS 89.1 % (40-80); PLATELET COUNT 155 10x3/uL (130-400); RDW 14.7 % (11.5-14.5); WBC 14.7 10x3/uL (4.8-10.8)
[2018-01-31 06:41] LABS: ALKALINE PHOSPHATASE 132 U/L (46-116); BILIRUBIN - TOTAL 1.22 mg/dL (0.2-1.3); CALC OSMOLALITY 279 mosm/kg (275-300); CALCIUM 8.1 mg/dL (8.5-10.1); CARBON DIOXIDE 26.4 mmol/L (21.0-32.0); CHLORIDE - SERUM 108 mmol/L (98-107); CREATININE - SERUM 0.8 mg/dL (0.6-1.3); GLUCOSE 95 mg/dL (74-106); MAGNESIUM - SERUM 2.2 mg/dL (1.8-2.4); PHOSPHOROUS 2.8 mg/dL (2.5-4.9); POTASSIUM - SERUM 3.8 mmol/L (3.5-5.1); PROTEIN - SERUM 4.8 g/dL (6.4-8.2); SODIUM 140 mmol/L (136-145); UREA NITROGEN 16 mg/dL (7-18); eGFR NON AFRICAN AMERICAN > 90 mL/min (90-120)
[2018-01-31 06:42] LABS: ALT (SGPT) 137 U/L (10-68)
[2018-01-31] MEDS ORDERED: CORDARONE200 MG PO (09:41)
[2018-01-31] MEDS ORDERED: LOPRESSOR25 MG PO (09:42)
[2018-01-31] MEDS ORDERED: COLACE100 MG PO (09:45)
[2018-01-31] MEDS ORDERED: THERAGRAN M [BK1 TAB PO (09:46)
[2018-01-31] MEDS ORDERED: LEVAQUIN750 MG PO (14:41)
[2018-01-31] MEDS ORDERED: IPRAT-ALBUT 0.5-3 ML UPD (16:17)
== END 2018-01-31 16:48 | disposition home or self-care (01) | DRG 235 ==
LOC: D.SDCHOLD 05:00 → D.CVICU 05:00 → D.SDCHOLD 07:30 → D.CVICU 11:18
PROVIDERS: Family Medicine; Internal Medicine Cardiovascular Disease
PROC: 021009W Bypass Coronary Artery, One Artery from Aorta with Autologous Venous Tissue, Open Approach (ICD-10-PCS; 2018-01-25)
PROC: 06BQ0ZZ Excision of Left Saphenous Vein, Open Approach (ICD-10-PCS; 2018-01-25)
PROC: 5A1221Z Performance of Cardiac Output, Continuous (ICD-10-PCS; 2018-01-25)
PROC: 02100ZC Bypass Coronary Artery, One Artery from Thoracic Artery, Open Approach (ICD-10-PCS; principal; 2018-01-25 07:30)
PROC: 5A09357 Assistance with Respiratory Ventilation, Less than 24 Consecutive Hours, Continuous Positive Airway Pressure (ICD-10-PCS; 2018-01-26)
DX: I25.110 Atherosclerotic heart disease of native coronary artery with unstable angina pectoris (principal); J96.21 Acute and chronic respiratory failure with hypoxia; J96.22 Acute and chronic respiratory failure with hypercapnia; J18.9 Pneumonia, unspecified organism; J90 Pleural effusion, not elsewhere classified; D62 Acute posthemorrhagic anemia; J44.1 Chronic obstructive pulmonary disease with (acute) exacerbation; J98.11 Atelectasis; I10 Essential (primary) hypertension; E78.5 Hyperlipidemia, unspecified; F17.200 Nicotine dependence, unspecified, uncomplicated; I48.91 Unspecified atrial fibrillation; D69.6 Thrombocytopenia, unspecified

== ENCOUNTER → 2018-02-16 08:16 | Outpatient (CLI) | payer MEDICARE ==
[2018-01-28 21:05] VITALS: BMI 21.1
[~2018-02-16 08:16] MED LIST changes: +COLACE100 MG PO; +CORDARONE200 MG PO; +IPRAT-ALBUT 0.5-3 ML UPD; +LEVAQUIN750 MG PO; +LOPRESSOR25 MG PO; +THERAGRAN M [BK1 TAB PO
[2018-02-16 08:42] LABS: HEMATOCRIT 34.9 % (42.0-54.0); HEMOGLOBIN 11.5 g/dL (13.5-17.5); MCH 29.7 pg (26.0-34.0); MCV 90.2 fL (80.0-100.0); MEAN PLATELET VOLUME 8.9 fL (7.4-10.4); RBC 3.87 10x6/uL (4.20-6.10); RDW 14.7 % (11.5-14.5); WBC 6.7 10x3/uL (4.8-10.8)
[2018-02-16 09:03] LABS: ALBUMIN 2.9 g/dL (3.4-5.0); ANION GAP 11.6 mmol/L (8-16); BILIRUBIN - TOTAL 0.57 mg/dL (0.2-1.3); CALCIUM 8.4 mg/dL (8.5-10.1); CARBON DIOXIDE 26.9 mmol/L (21.0-32.0); CREATININE - SERUM 1.1 mg/dL (0.6-1.3); POTASSIUM - SERUM 4.5 mmol/L (3.5-5.1); PROTEIN - SERUM 5.8 g/dL (6.4-8.2)
== END | disposition home or self-care (01) ==
LOC: D.LAB 08:00
PROVIDERS: Internal Medicine Cardiovascular Disease
DX: D64.9 Anemia, unspecified (principal); J91.8 Pleural effusion in other conditions classified elsewhere

== ENCOUNTER 2018-05-30 08:37 | Outpatient (CLI) | payer MEDICARE ==
[~2018-05-30] VITALS: Ht 170.2 cm; Wt 58.2 kg
--- NOTE | ~2018-05-30 | HEMODYNAMI ---
PATIENT:KEON NAGEL MEDICAL RECORD: [id number] : 50 LOCATION:DVictorinoCAT ADMISSION DATE: 05/30/18 Generatedon:05/30/201811:14 Patient name: KEON NAGEL Patient #: [id number] SSN: : 1950 Date of study: 05/30/2018 Page: Of Hemodynamic Procedure Report Patient Data Patient Demographics Procedure consent was obtained First Name: KEON Gender: Male Last Name: SHONA : 1950 [facility] Initial: E Age: 68 year(s) Patient #: [id number] Race: Additional ID: [id number] Contact details Address: [address] [place] [address] State: [place] City: [facility] Zip code: [address] Past Medical History Allergies Allergen Reaction Date Comments Reported Iodine 12/12/2015 Iodine 01/14/2017 Admission Admission Data Admission Date: 05/30/2018 Admission Time: 8:37 Procedure Procedure Types Cath Procedure Diagnostic Procedure LHC LHC w/Coronaries w/Grafts PCI Procedure Coronary Stent Coronary Stent Initial x2 Peripheral Cath Diagnostic Procedure Outsole Tacker Peripheral Procedures Lqowl-Xbdkown-Sbd-Off Procedure Description Procedure Date Procedure Date: 05/30/2018 Procedure Start Time: 10:40 Procedure End Time: 11:08 Procedure Staff Name Function Abhinav Escalante MD Performing Physician Wale Hartley RN Stopper Maker Cathleen Brooks RN Nurse Judson Britton RT Monitor Bernice Kapoor RT Scrub Procedure Data Cath Procedure Fluoroscopy Diagnostic fluoroscopy Total fluoroscopy Time: 6.6 time: 6.6 min min Diagnostic fluoroscopy Total fluoroscopy dose: 266 dose: 266 mGy mGy Contrast Material Contrast Material Type Amount (ml) Isovue 300 183 Entry Location Entry Primary Successful Side Size Upsize Upsize Entry Closure Succes sful Closure Location (Fr) 1 (Fr) 2 (Fr) Remarks Device Remarks Femoral Right 5 Fr 6 Fr 6 Fr Exoseal artery Long Short Estimated blood loss: 10 ml Diagnostic catheters Device Type Used For End Catheter Placement MULTIPACK 3DRC 5Fr Procedure catheter MULTIPACK Pigtail 5 Fr Procedure catheter MULTIPACK JL 4.0 5Fr Procedure catheter MULTIPACK 3DRC 5Fr Procedure catheter DIAGNOSTIC AR2 MOD 5 Fr Procedure catheter ([id number]) Procedure Complications No complications Procedure Medications Medication Administration Route Dosage Oxygen etCO2 Nasal cannula 2 l/min Lidocaine 2% added to field 20 Heparin Flush Bag added to field 2 bags (1000units/500ml NS) 0.9% NaCl I.V. 100 ml/hr Versed I.V. 2 mg Versed I.V. 2 mg Fentanyl I.V. 100 mcg Versed I.V. 2 mg Fentanyl I.V. 100 mcg Versed I.V. 2 mg Fentanyl I.V. 100 mcg Heparin Bolus I.V. 4000 units Integrilin (Bolus I.V. 5 ml 2mg/ml) Plavix P.O. 600 mg Hemodynamics Rest Heart Rate: 81 (bpm) Pressure Samples Time Site Value (mmHg) Purpose Heart Use Rate(bpm) 10:50 AO 110/66(87) Snapshot 87 10:52 AO 107/68(85) Snapshot 90 Snapshots Pre Cath Intra NCS Post Cath Vital Signs Time Heart Resp SPO2 etCO2 NIBP (mmHg) Rhythm Pain Sedation Rate (ipm) (%) (mmHg) Status Level (bpm) 9:58:48 83 14 100 0 140/95(121) NSR 0 (11) 10(A) , No pain 10:03:06 86 17 99 24.1 150/87(119) NSR 0 (11) 10(A) , No pain 10:07:18 82 15 98 16.5 139/96(118) NSR 0 (11) 10(A) , No pain 10:11:34 83 15 97 20.3 140/90(120) NSR 0 (11) 10(A) , No pain 10:15:50 86 17 100 24.8 136/93(115) NSR 0 (11) 10(A) , No pain 10:20:06 86 14 99 20.3 133/85(110) NSR 0 (11) 10(A) , No pain 10:24:18 78 15 98 12 132/84(106) NSR 0 (11) 10(A) , No pain 10:28:30 80 17 98 13.5 128/86(112) NSR 0 (11) 10(A) , No pain 10:32:40 80 16 98 21.1 119/84(98) NSR 0 (11) 10(A) , No pain 10:36:54 80 18 98 21.8 125/82(108) NSR 0 (11) 10(A) , No pain 10:41:06 84 18 98 27.9 114/77(99) NSR 0 (11) 9(A) , No pain 10:45:14 86 17 98 35.4 110/77(97) NSR 0 (11) 9(A) , No pain 10:49:24 90 16 97 35.4 107/74(95) NSR 0 (11) 9(A) , No pain 10:53:34 91 14 98 34.6 106/69(86) NSR 0 (11) 9(A) , No pain 10:57:44 92 15 97 33.1 109/70(89) NSR 0 (11) 9(A) , No pain 11:01:52 89 15 97 34.6 99/66(81) NSR 0 (11) 9(A) , No pain 11:05:55 101 15 98 31.6 116/83(99) NSR 0 (11) 10(A) , No pain Medications Time Medication Route Dose Verified Delivered Reason Notes Effectiveness by by 10:04:27 Oxygen etCO2 2 Abhinav Buffie used for Nasal l/min Ava Brooks RN procedure cannula 10:04:37 Lidocaine 2% added 20ml Abhinav Abhinav for local to vial Ava Escalante MD anesthetic field 10:04:49 Heparin Flush added 2 Abhinav Abhinav used for Bag to bags Ava Escalante MD procedure (1000units/500ml field NS) 10:04:58 0.9% NaCl I.V. 100 Abhinav Buffie Per physician ml/hr Ava Brooks RN 10:08:33 Versed I.V. 2 mg Abhinav Buffie for anxiety Ava Brooks RN 10:37:32 Versed I.V. 2 mg Abhinav Buffie for sedation Ava Brooks RN 10:37:39 Fentanyl I.V. 100 Abhinav Buffie for sedation mcg Ava Brooks RN 10:40:41 Versed I.V. 2 mg Abhinav Buffie for sedation Ava Brooks RN 10:40:45 Fentanyl I.V. 100 Abhinav Connolly for sedation mcg Ava Brooks RN 10:44:59 Versed I.V. 2 mg Abhinav Connolly for sedation Ava Brooks RN 10:45:07 Fentanyl I.V. 100 Abhinav Connolly for sedation mcg Ava Brooks RN 10:56:05 Heparin Bolus I.V. 4000 Abhinav Connolly for verif ied units Ava Brooks RN anticoagulation with dr escalante 10:58:04 Integrilin I.V. 5 ml Abhinav Connolly for waste d 5 (Bolus 2mg/ml) vAa Brooks RN antiplatelet ml of therapy vial 11:10:03 Plavix P.O. 600 Abhinav Connolly for mg Ava Brooks RN antiplatelet therapy Procedure Log Time Note 9:33:08 Time tracking: Regular hours (M-F 7:00 - 5:00) 9:33:10 Plan of Care:Hemodynamics will remain stable.. 9:33:15 Plan of Care:Hemodynamics will remain stable., Cardiac rhythm will remain stable., Comfort level will be maintained., Respiratory function will remain adequate., Patient/ family verbilizes understanding of procedure., Procedure tolerated without complication., Recovers from procedure without complications.. 9:44:17 Cathleen Brooks RN sent for patient. Start room use. 9:51:11 Patient received from Pre/Post Procedure Room to CCL 3 Alert and oriented. Tansferred to table in Supine position. 9:51:12 Warm blankets applied, and ernesto hugger turned on for patient comfort. 9:51:12 Correct patient and procedure confirmed by team. 9:51:13 Signed procedure consent form obtained from patient. 9:51:15 ECG and BP/O2 sat monitors applied to patient. 9:51:16 Full Disclosure recording started 9:57:25 Vital chart was started 9:57:31 Rhythm: sinus bradycardia 10:04:27 Oxygen 2 l/min etCO2 Nasal cannula was administered by Cathleen Brooks RN; used for procedure; 10:04:37 Lidocaine 2% 20ml vial added to field was administered by Abhinav Escalante MD; for local anesthetic; 10:04:49 Heparin Flush Bag (1000units/500ml NS) 2 bags added to field was administered by Abhinav Escalante MD; used for procedure; 10:04:58 0.9% NaCl 100 ml/hr I.V. was administered by Cathleen Brooks RN; Per physician; 10:08:33 Versed 2 mg I.V. was administered by Cathleen Brooks RN; for anxiety; 10:12:06 Baseline sample Acquired. 10:12:20 H&P Date Dictated: 05/29/2018 Within 30 days and on chart., H&P Addendum completed by physician on day of procedure. (MUST COMPLETE FOR ALL OUTPATIENTS). 10:12:23 Pre-procedure instructions explained to patient. 10:12:24 Pre-op teaching completed and patient verbalized understanding. 10:12:26 Family in patients room. 10:12:27 Patient NPO since Midnight. 10:12:28 Is the patient allergic to Iodine/contrast media? No. 10:12:50 Is patient on blood thinner?No 10:12:52 Patient diabetic? No. 10:13:51 Previous problem with sedation/anesthesia? No ? 10:13:52 Snore? Yes 10:14:00 Sleep apnea? No 10:14:01 Deviated septum? No 10:14:02 Opens mouth fully? Yes 10:14:03 Sticks out tongue? Yes 10:14:11 Airway obstruction? Yes COPD 10:14:22 Dentures? Yes OUT 10:16:48 Pre procedure: right dorsailis pedis pulse 1+ Palpable, but thready & weak; easily obliterated 10:16:51 Patient pain scale 0/10 ?. 10:16:56 IV patent on arrival in right antecubital with 0.9% NaCl at [facility]. 10:17:05 Lab results completed and on chart. 10:17:09 Right groin area was prepped with chlora-prep and draped in sterile fashion 10:17:11 Alarms reviewed by R. N. 10:17:11 Sharps counted by scrub and verified by R.N. 10:17:18 Use device set Femoral Dx 10:17:20 Tegaderm 4 x 4 (1626W) opened to sterile field. 10:17:23 ACIST Manifold (50479) opened to sterile field. 10:17:24 ACIST Hand Control (45720) opened to sterile field. 10:17:25 ACIST Syringe (55000) opened to sterile field. 10:17:25 Bag Decanter (2002S) opened to sterile field. 10:17:25 Medline Cath Pack ([id number]) opened to sterile field. 10:17:28 DIAGNOSTIC Multipack 5Fr catheter set (XU6503) opened to sterile field. 10:17:29 DIAGNOSTIC WIRE .035 260cm J wire (772822) opened to sterile field. 10:17:31 SHEATH 5FR [place] (SVO861) opened to sterile field. 10:30:08 Physician paged 10:36:37 --------ALL STOP TIME OUT------ 10:36:37 Final Timeout: patient, procedure, and site verified with staff and physician. All members of the team are in agreement. 10:36:43 Right groin site verified by team. 10:36:47 Physical assessment completed. ASA score P 2 - A patient with mild systemic disease as per Abhinav Escalante MD. 10:36:52 Sedation plan: IV Moderate Sedation Medication:Versed, Fentanyl 10:37:32 Versed 2 mg I.V. was administered by Cathleen Brooks RN; for sedation; 10:37:39 Fentanyl 100 mcg I.V. was administered by Cathleen Brooks RN; for sedation; 10:38:18 Zero performed for pressure channel P1 10:40:19 Procedure started. 10:40:23 Local anesthetic to right femoral artery with Lidocaine 2% by Abhinav Escalante MD.INITIAL ACCESS ONLY 10:40:41 Versed 2 mg I.V. was administered by Cathleen Brooks RN; for sedation; 10:40:45 Fentanyl 100 mcg I.V. was administered by Cathleen Brooks RN; for sedation; 10:42:10 A 5 Fr sheath was inserted into the Right Femoral artery 10:42:21 A MULTIPACK 3DRC 5Fr catheter was advanced over the wire and used for Procedure. 10:44:16 SHEATH 6FR Destination (RSR01) opened to sterile field. 10:44:16 TORQUE DEVICE PLASTIC .038 ( TD01) opened to sterile field. 10:44:16 GLIDE WIRE Super Stiff Angled 260cm (KL5685) opened to sterile field. 10:44:59 Versed 2 mg I.V. was administered by Cathleen Brooks RN; for sedation; 10:45:07 Fentanyl 100 mcg I.V. was administered by Cathleen Brooks RN; for sedation; 10:45:11 Unable to advance catheter. Wire advanced. Catheter removed. 10:47:06 Destination damaged upon insertion. Sheath removed. 10:47:19 SHEATH 6FR ARROW 45cm (CL-53489) opened to sterile field. 10:47:37 Sheath upsized to a 6 Fr Long. 10:48:21 A MULTIPACK Pigtail 5 Fr catheter was advanced over the wire and used for Procedure. 10:48:32 LV angiography performed. 10:48:35 LV gram done using VALENZUELA 10:48:41 EF : 60 % 10:49:29 Injector settings: Ml/sec: 10, Volume: 20, 10:51:13 Abdominal Aortagram was performed. 10:51:15 Left leg runoff performed. 10:51:16 Right leg runoff performed. 10:51:50 Catheter removed. 10:52:12 A MULTIPACK JL 4.0 5Fr catheter was advanced over the wire and used for Procedure. 10:52:56 LCA angiography performed. 10:54:27 Catheter removed. 10:54:58 A MULTIPACK 3DRC 5Fr catheter was advanced over the wire and used for Procedure. 10:55:33 LUCAS closed. 10:55:56 RCA angiography performed. 10:56:05 Heparin Bolus 4000 units I.V. was administered by Cathleen Brooks RN; for anticoagulation; verified with dr escalante 10:56:25 Catheter removed. 10:56:58 Use device set [facility] PCI 10:57:01 SHEATH 6FR [place] (FGR767) opened to sterile field. 10:57:06 CHOICE PT Extra Support 182cm wire ([id number]) opened to sterile field. 10:57:10 INFLATOR Merit BasixCompak (FV3589) opened to sterile field. 10:57:26 A DIAGNOSTIC AR2 MOD 5 Fr catheter (114940A) was advanced over the wire and used for Procedure. 10:57:38 SVG to Diag angiography performed. 10:57:49 GUIDE 6FR XBLAD 3.5 catheter ([id number]) opened to sterile field. 10:58:04 Integrilin (Bolus 2mg/ml) 5 ml I.V. was administered by Cathleen Brooks RN; for antiplatelet therapy; wasted 5 ml of vial 10:59:09 Catheter removed. 10:59:34 6 Fr XBLAD 3.5 guide catheter was inserted over the wire 10:59:48 CPTXS wire advanced. 11:00:08 Wire advanced across lesion. 11:01:03 Place stent Inflation Number: 1 A LISA RX 2.5 x 08 stent ([id number]) was prepped and advanced across the Prox CX. The stent was deployed at 13 TAHMINA for 0:10 (min:sec). 11:01:22 Inflation number: 2 The stent balloon was then re-inflated across the Prox CX to 5 TAHMINA for 0:10 (min:sec). 11:02:12 Stent catheter was removed intact over wire. 11:02:18 Wire redirected to LAD. 11:02:26 Wire advanced across lesion. 11:03:34 Place stent Inflation Number: 1 A LISA RX 2.5 x 08 stent ([id number]) was prepped and advanced across the Prox LAD. The stent was deployed at 17 TAHMINA for 0:10 (min:sec). 11:06:17 Stent catheter was removed intact over wire. 11:06:18 Wire removed. 11:06:19 Guide catheter removed. 11:06:44 EXOSEAL 6Fr (EX600) opened to sterile field. 11:06:57 Sheath upsized to a 6 Fr Short. 11:06:57 Sheath removed intact; hemostasis achieved with Exoseal to the Right Femoral artery. 11:06:59 Procedure ended.(Physican Out) 11:07:10 Fluoroscopy time 06.60 minutes. 11:07:14 Flurop Dose total: 266 11:07:14 Fluoroscopy dose: 266 mGy 11:07:20 Contrast amount:Isovue 300 183ml. 11:07:21 Sharps counted by scrub and verified by R.N. 11:07:22 Insertion/operative site no bleeding no hematoma. 11:07:25 Post-op/insertion site Right Femoral artery dressed using a 4 x 4 and Tegaderm. 11:07:26 Post Procedure Pulses reassessed and unchanged 11:07:28 Post-procedure physical assessment completed. ASA score P 2 - A patient with mild systemic disease as per Abhinav Escalante MD. 11:07:30 Post procedure rhythm: unchanged. 11:07:32 Estimated blood loss: 10 ml 11:07:34 Post procedure instruction explained to patient.Patient verbalizes understanding. 11:07:34 Patient needs reinforcement of post procedure teaching. 11:07:49 Procedure type changed to Cath procedure, Diagnostic procedure, LHC, LHC w/Coronaries w/Grafts, PCI procedure, Coronary Stent, Coronary Stent Initial x2, Peripheral Cath Diagnostic Procedure, Outsole Tacker Peripheral Procedures, Etksx-Ubsskix-Maa-Off 11:07:50 Procedure and supply charges have been captured, reviewed, submitted and are correct. 11:07:54 Procedure Complication : No complications 11:08:34 Vital chart was stopped 11:08:34 See physician's report for complete and final results. 11:08:36 Report given to Pre/Post Procedure Room. 11:08:39 Patient transfered to Pre/Post Procedure Room with Stretcher. 11:08:41 Procedure ended. 11:08:41 Full Disclosure recording stopped 11:10:03 Plavix 600 mg P.O. was administered by Cathleen Brooks RN; for antiplatelet therapy; 11:11:42 End room use (Document Last) Intervention Summary Intervention Notes Time ActionType Lesion and Equipment Used Action# Pressure Duration Attributes 11:01:03 Place stent Prox CX LISA RX 2.5 x 1 13 00:10 08 stent ([id number]) 11:01:22 Reinflate Prox CX LISA RX 2.5 x 2 5 00:10 stent 08 stent balloon ([id number]) 11:03:34 Place stent Prox LAD LISA RX 2.5 x 1 17 00:10 08 stent ([id number]) Device Usage Item Name Manufacture Quantity Catalog Number Hospital Part Current M inimal Lot# / Charge Number Stock Stock Serial# Code Tegaderm 4 x 4 3M 1 1626W [id number] 007495 295906 5 (1626W) ACIST Manifold Acist 1 03393 414222 633931 323417 5 (89710) Medical Systems Inc ACIST Hand Acist 1 93146 597963 260237 163774 5 Control Medical (98670) Systems Inc ACIST Syringe Acist 1 30624 110143 119434 521202 2 0 (04579) Medical Systems Inc Bag Decanter Microtek 1 2001S 962200 93654 672832 5 (2001S) Medical Inc. Medline Cath Medline 1 [id number] 259149 94861 953099 5 Pack ([id number]) DIAGNOSTIC Cardinal 1 AW4612 488798 68058 568544 3 0 Multipack 5Fr Health catheter set (QW0123) DIAGNOSTIC [facility] [place] 1 506946 690408 056556 647456 3 0 WIRE .035 260cm J wire (444966) SHEATH 5FR Terumo 1 MGS903 402048 064698 696901 4 0 [place] (IQX519) MULTIPACK 3DRC Cardinal 1 364558 5 5Fr catheter Health SHEATH 6FR Terumo 1 RSR01 535598 62362 195475 5 Destination (RSR01) TORQUE DEVICE Arcade 1 TD01 879195 292606 484392 5 PLASTIC .038 ( Scientific TD01) GLIDE WIRE Terumo 1 WZ3702 786691 136374 719637 5 Super Stiff Angled 260cm (QB2512) SHEATH 6FR Teleflex 1 CL-21810 581459 675844 861833 5 ARROW 45cm (CL-10364) MULTIPACK Cardinal 1 303385 5 Pigtail 5 Fr Health catheter MULTIPACK JL Cardinal 1 051588 5 4.0 5Fr Health catheter SHEATH 6FR Terumo 1 YEN929 384113 552084 412134 4 0 [place] (UGB832) CHOICE PT Arcade 1 [id number] 278815 067257 140416 5 Extra Support Scientific 182cm wire (1324304V4) INFLATOR Merit Merit 1 QH9575 876973 522178 493835 1 5 BenhauerksABS Medical [facility] (WO1162) DIAGNOSTIC AR2 Cardinal 1 [id number] 368673 362069 836838 2 0 MOD 5 Fr Health catheter (511777C) GUIDE 6FR Cardinal 1 [id number] 867719 621667 911846 1 0 XBLAD 3.5 Health catheter (16615499) LISA RX 2.5 x Medtronic 2 [id number] 529739 0598135 882530 5 [id number] 08 stent [id number] ([id number]) EXOSEAL 6Fr Cardinal 1 EX600 855205 668463 243352 1 0 (EX600) Health Signature Audit [place] Stage Time Signature Unsigned Intra-Procedure 05/30/2018 Judson Britton 11:13:47 AM RT(R) Signatures Monitor : Judson Britton RT Signature : Date : Time : [place] [address] [place] [address]
--- NOTE | ~2018-05-30 | OP ---
PATIENT NAME: KEON NAGEL MEDICAL RECORD: [id number] :50 LOCATION:D.CAT ADMISSION DATE: SURGEON: JEFFERSON FERREIRA MD DATE OF OPERATION: 05/30/2018 PROCEDURES: 1. Aortofemoral runoff. 2. Abdominal aortography. INDICATION: Claudication and peripheral vascular disease. PROCEDURE IN DETAIL: After informed consent was obtained and after a detailed explanation of risks, benefits as well as alternative therapies, the patient elected to proceed with angiogram and aortofemoral runoff. The right femoral area had a preexisting sheath. All catheters exchanged through this sheath. FINDINGS: The catheter was advanced to the abdominal aorta, pulled down for aortofemoral runoff. Abdominal aorta reveals moderate diffuse disease throughout. There appears to be a large calcified stenosis in the infrarenal aorta to at least 50%. RIGHT LEG: A. Iliac: The common internal and external iliacs have mild irregularities, but no flow-limiting stenosis. B. Femoral system: The common, superficial, and deep femoral have mild irregularities, but no flow-limiting stenosis. C. Popliteal and infrapopliteal vessels are widely patent with good 3-vessel runoff to the foot, although mildly diffusely diseased. LEFT LEG: A. Iliac: The common internal and external iliacs have mild irregularities, but no flow-limiting stenosis. B. Femoral system: The common, superficial, and deep femoral have mild irregularities, but no flow-limiting stenosis. C. Popliteal and infrapopliteal vessels are widely patent with good 3-vessel runoff to the foot, although mildly diffusely diseased. OVERALL IMPRESSION: Moderate disease of the distal abdominal aorta. No dissection. No significant peripheral vascular disease of the either legs. Continue medical management of the peripheral vascular disease and peripheral risk factors. TRANSINT:[id number] Voice Confirmation ID: [id number] DOCUMENT ID: [id number] JEFFERSON FERREIRA MD at 1704 CC: [id number] DICTATION DATE: 05/30/18 1112 CARDIOPULMONARY SUPERVISOR: 05/30/18 1149 DEP CLI 05/30/18 [place] [id number] [place] [id number]
--- NOTE | ~2018-05-30 | OP ---
PATIENT NAME: KEON NAGEL MEDICAL RECORD: [id number] :50 LOCATION:D.CAT ADMISSION DATE: SURGEON: JEFFERSON FERREIRA MD DATE OF OPERATION: 05/30/2018 PROCEDURES: 1. PTCA and stent of LAD. 2. PTCA and stent of left circumflex. 3. Left heart catheterization. 4. Selective coronary angiography. 5. Left ventriculogram. 6. Vein graft angiography. 7. LUCAS angiography. INDICATIONS: Angina and coronary artery disease. PROCEDURE IN DETAIL: After informed consent was obtained and after a detailed explanation of the risks, benefits as well as alternative therapies, the patient elected to proceed with angiogram and angioplasty. The right femoral area was prepped and draped in normal sterile fashion. Right femoral artery was cannulated via modified Seldinger technique with placement of 6-Upper Sorbian sheath. All catheters exchanged through this sheath. FINDINGS: Left ventriculogram was performed in a standard 30-degree VALENZUELA view, reveals preserved cardiac wall motion, ejection fraction 50% to 55%. SELECTIVE CORONARY ANGIOGRAPHY: 1. Left main is with no significant angiographic disease. 2. Left anterior descending has 80% to 90% stenosis proximally. 3. LUCAS to the LAD is closed. 4. The LAD diagonal has 80% to 90% stenosis proximally. 5. Vein graft to the LAD diagonal is widely patent. 6. The left circumflex has 80% stenosis proximally, followed by a previously placed stent that is widely patent. 7. The right coronary has previously placed stents, these are widely patent. There is no disease elsewise throughout the RCA or its branches. PTCA AND STENT OF THE LAD AND CIRCUMFLEX: The LAD and circumflex are both addressed with a 2.5 x 8-mm [place] stents. Result was 0% residual stenosis. OVERALL IMPRESSION: Successful PTCA and stent of the LAD and circumflex, both going from 80% to 90% initial stenosis to 0% residual. TRANSINT:[id number] Voice Confirmation ID: [id number] DOCUMENT ID: [id number] JEFFERSON FERREIRA MD at 1704 CC: [id number] DICTATION DATE: 05/30/18 1112 EATING DISORDER PSYCHOLOGIST: 05/30/18 1146 DEP CLI 05/30/18 [place] [address]
[2018-05-30 09:19] VITALS: BP 136/91; Ht 170.2 cm; Wt 58.2 kg
[2018-05-30 09:19] LABS: BASOPHILS 0 % (0-2); EOSINOPHILS 0 % (0-7); HEMATOCRIT 41.7 % (42.0-54.0); HEMOGLOBIN 14.4 g/dL (13.5-17.5); IMMATURE GRANULOCYTES 0.2 % (0-5); LYMPHOCYTES 7.3 % (15-50); MCH 28.8 pg (26.0-34.0); MCHC 34.5 g/dL (31.0-37.0); MCV 83.4 fL (80.0-100.0); MONOCYTES 1.2 % (2-11); NEUTROPHILS 91.3 % (40-80); PLATELET COUNT 133 10x3/uL (130-400); RDW 14.8 % (11.5-14.5); WBC 6.5 10x3/uL (4.8-10.8)
[2018-05-30 09:30] LABS: CALC OSMOLALITY 283 mosm/kg (275-300); CALCIUM 9.2 mg/dL (8.5-10.1); CARBON DIOXIDE 27.3 mmol/L (21.0-32.0); CHLORIDE - SERUM 107 mmol/L (98-107); GLUCOSE 129 mg/dL (74-106); POTASSIUM - SERUM 4.3 mmol/L (3.5-5.1); SODIUM 141 mmol/L (136-145); UREA NITROGEN 15 mg/dL (7-18); eGFR NON AFRICAN AMERICAN 79 mL/min (90-120)
[2018-05-30] MEDS ORDERED: PLAVIX75 MG PO (11:28)
== END 2018-05-30 13:10 | disposition home or self-care (01) ==
LOC: D.CATH 08:37
PROVIDERS: Internal Medicine Interventional Cardiology
DX: I25.119 Atherosclerotic heart disease of native coronary artery with unspecified angina pectoris (principal); I25.719 Atherosclerosis of autologous vein coronary artery bypass graft(s) with unspecified angina pectoris; I35.0 Nonrheumatic aortic (valve) stenosis; Z01.812 Encounter for preprocedural laboratory examination
CPT/HCPCS: 93459; C9600 ×2

== ENCOUNTER → 2018-07-26 13:10 | Outpatient (CLI) | payer MEDICARE ==
[2018-05-30 09:19] VITALS: BMI 20.1
== END | disposition home or self-care (01) ==
LOC: D.CT 13:10
DX: R10.9 Unspecified abdominal pain (principal)